=== PATIENT | male | born 1940 | race Caucasian/White ===

== ENCOUNTER 2019-01-27 07:48 | Inpatient (IN) | payer OTHER ==
[2019-01-27] MEDS ORDERED: ONDANSETRON 4 MG/2 ML VIAL ONE (08:29)
[2019-01-27] MEDS ORDERED: NA CHLORIDE 0.9% 1,000 ML ONE (08:29)
[2019-01-27 08:35] LABS: Absolute Lymphocytes (CBC) 1.4 K/uL (0.7-4.9); Basophils % 0.4 % (0-1.3); Eosinophils % 0.1 % (0-4.4); Hematocrit 38.6 % (39.6-49.0); MPV 9.7 fL (7.6-11.3); Monocytes % 12.2 % (3.3-12.3); RBC Red Blood Cell Count 4.01 M/uL (4.33-5.43)
[2019-01-27 08:49] LABS: Albumin 3.1 g/dL (3.4-5.0); Bilirubin Direct 0.2 mg/dL (0-0.2); Bilirubin Total 0.5 mg/dL (0.2-1.0); Potassium 3.8 mmol/L (3.5-5.1); Protein, Total 8.2 g/dL (6.4-8.2)
[2019-01-27 10:51] LABS: Urine Blood 2+ (NEG); Urine Glucose NEGATIVE (NEG); Urine Protein 3+ (NEG)
--- NOTE | 2019-01-27 11:28 | RAD REPORT ---
EXAM DESCRIPTION: CT - Thorax Wo Con CLINICAL HISTORY: Chest pain abnormal pulmonary xray COMPARISON: Chest Single View dated 01/27/2019 FINDINGS: Linear subsegmental atelectasis is present in the right lung base with elevation of the ri ght hemidiaphragm noted. The lungs are mildly emphysematous. Poorly defined opacity is present in the posterior right upper lobe along the periphery of lung suspicious for developing pneumonia/ infiltra te. No pleural thickening or pleural effusion. No pneumothorax. No axillary, mediastinal or hilar adenopathy. No concerning bony finding. Pneumobilia. All CT scans are performed using dose optimization technique as appropriate and may include automated exposure control or mA/KV adjustment according to patient size. IMPRESSION: Developing infiltrate is seen in the posterior right upper lobe along the periphery of t he lung.This likely represents developing pneumonia or related to aspiration. Subsegmental atelectasis in the right lung base with elevated right hemidiaphragm.
--- NOTE | 2019-01-27 11:31 | RAD REPORT ---
EXAM DESCRIPTION: RAD - Chest Single View - 01/27/2019 10:20 am CLINICAL HISTORY: MALAISE Chest pain. COMPARISON: No comparisons FINDINGS: Portable technique limits examination quality. Mild elevation in the right hemidiaphragm is seen without clear etiology. Small vague opacity is pres ent in the right upper lobe of the lung peripherally. The heart is normal in size. No displaced fract ures.
--- NOTE | 2019-01-27 11:51 | ER ---
Nurse's Notes [facility] Name: Uday Rice Age: 78 yrs Sex: Male : 1940 Arrival Date: 01/27/2019 Time: 07:51 Bed 7 Private MD: out of town, doctor Diagnosis: Pneumonia due to other specified bacteria;Chronic kidney disease (CKD) Presentation: 01/27 07:55 Presenting complaint: states: pt has had general weakness and fatigue that started sg last night, reports having the urge to vomit but nothing comes up. denies vision changes, no facial droop, or changes in speech at this time. Transition of care: patient was not received from another setting of care. Onset of symptoms was January 27, 2019. Risk Assessment: Do you want to hurt yourself or someone else? Patient reports no desire to harm self or others. Initial Sepsis Screen: Does the patient meet any 2 criteria? No. Patient's initial sepsis screen is negative. Does the patient have a suspected source of infection? No. Patient's initial sepsis screen is negative. Care prior to arrival: None. 07:55 Method Of Arrival: Wheelchair sg 07:55 Acuity: AMY 3 sg 08:00 Presenting complaint: Patient states: Karyna been throwing up the last two days and havent sg been able to take my normal medications due to vomiting, reports having been able to tolerate popsicles and water at home. Denies pain, reports soreness from vomiting in the abd, no urinary symptoms reported, denies cough/chest congestion. Historical: - Allergies: 08:09 No Known Allergies; sg - Home Meds: 08:09 allopurinol 300 mg Oral tab 1 tab once daily [Active]; atorvastatin 40 mg oral tab 1 sg tab once daily [Active]; citalopram 20 mg tab 1 tab once daily [Active]; clonidine HCl 0.1 mg Oral tab 1 tab 2 times per day for Hypertension [Active]; folic acid 1 mg Oral tab 1 tab once daily [Active]; furosemide 20 mg Oral tab 1 tab once daily [Active]; glimepiride 4 mg Oral tab 1 tab twice daily [Active]; Lantus 100 unit/mL subcutaneous soln 10 unit daily [Active]; levothyroxine 100 mcg tab 1 tab once daily [Active]; metoprolol tartrate 25 mg Oral tab 1 tab 2 times per day [Active]; nifedipine 30 mg Oral TbER 1 tab once daily [Active]; phenytoin 100 mg Tab oral chew 3 times per day [Active]; pioglitazone 45 mg oral tab 1 tab once daily [Active]; trazodone 50 mg Oral tab 1 tab nightly [Active]; Sodium Bicarbonate 10 gr Oral twice a day [Active]; zolpidem 5 mg Oral tab 1 tab once daily [Active]; aspirin 81 mg Oral chew 1 tab once daily [Active]; Vitamin D3 5,000 unit oral tab daily [Active]; B12 5,000-100 mcg sublingual lozg daily [Active]; - PMHx: 08:09 Diabetes - NIDDM; Hypertension; Hypothyroidism; Renal Disease; sg - PSHx: 08:09 Right Carotid; sg - Immunization history:: Adult Immunizations up to date. - Social history:: Smoking status: Patient/guardian denies using tobacco. - Ebola Screening: : Patient negative for fever greater than or equal to 101.5 degrees Fahrenheit, and additional compatible Ebola Virus Disease symptoms Patient denies exposure to infectious person Patient denies travel to an Ebola-affected area in the 21 days before illness onset No symptoms or risks identified at this time. Screenin:15 Abuse screen: Denies threats or abuse. Denies injuries from another. Nutritional sg screening: No deficits noted. Tuberculosis screening: No symptoms or risk factors identified. Never had TB. VAN Screening: Arm Drift: Patient shows no arm weakness. Patient is VAN negative. Fall Risk None identified. Assessment: 08:18 General: Appears in no apparent distress. uncomfortable, ill, well groomed, well sg developed, well nourished, Behavior is calm, cooperative, appropriate for age, quiet. Pain: Denies pain. Neuro: Level of Consciousness is awake, alert, obeys commands, Oriented to person, place, time, situation, [employer] are equal bilaterally Moves all extremities. Full function Gait is steady, Speech is normal, Facial symmetry appears normal. Cardiovascular: Heart tones S1 S2 present Capillary refill is brisk in bilateral fingers Patient's skin is warm and dry. Chest pain is denied. Respiratory: Airway is patent Respiratory effort is even, unlabored, Respiratory pattern is regular, symmetrical. GI: Abdomen is flat, non-distended. : No signs and/or symptoms were reported regarding the genitourinary system. EENT: Nares are clear bilaterally Throat is clear. Derm: Skin is intact, is thin, Skin is moist, Skin is pale, Skin temperature is warm. Musculoskeletal: No signs and/or symptoms reported regarding the musculoskeletal system. 08:50 Reassessment: pt reports taking his blood pressure medication just now, reports the sg nausea was better. Chari HERNANDEZ notified. 10:00 Reassessment: RECD REPORT FROM BRIANNA PUCKETT. 78YO WM P/W SUBJECTIVE DEHYDRATION AND HTN. PT bp HYPERTENSIVE ON MONITOR. RECENTLY TOOK HOME MEDS, ANTI-HYPERTENSIVES ON HOLD. RESULTS PENDING FOR DISPO. 11:16 Reassessment: PT RETURNED FROM CT. bp 12:17 Reassessment: PT SEEN BY ADMIT MD. ADMIT IN PROCESS. bp 14:00 Reassessment: ADMIT REQUEST SUBMITTED, BED ASSIGNMENT PENDING. bp Vital Signs: 08:11 BP 210 / 105; Pulse 93; Resp 19; Temp 97.6; Pulse Ox 95% on R/A; Weight 104.33 kg (R); sg Pain 0/10; 08:43 BP 197 / 90; Pulse 90; Resp 18; Temp 97.6; Pulse Ox 98% on R/A; Pain 0/10; iw 09:54 BP 191 / 121; Pulse 88; Resp 18; Pulse Ox 90% ; bp 10:15 BP 151 / 82; Pulse 78; Resp 18; Pulse Ox 94% on R/A; ph 10:30 BP 163 / 80; Pulse 71; Resp 19; Pulse Ox 93% ; bp 11:16 BP 157 / 78; Pulse 70; Resp 20; Pulse Ox 93% ; bp 12:00 BP 134 / 65; Pulse 72; Resp 20; Pulse Ox 99% on 2 lpm NC; bp 13:00 BP 177 / 128; Pulse 74; Resp 21; Pulse Ox 97% ; bp 14:00 BP 159 / 67; Pulse 85; Resp 23; Pulse Ox 97% ; bp ED Course: 07:51 Patient arrived in ED. dl4 07:52 out of town, doctor is Private Physician. dl4 07:54 Darío Amado PA is PHCP. jr8 07:54 Austen Miller MD is Attending Physician. jr8 07:55 Harley Rivera, RN is Primary Nurse. sg 07:55 Arm band placed on. sg 07:58 Triage completed. sg 08:18 Initial lab(s) drawn, by me, sent to lab. Inserted saline lock: 22 gauge in right kj1 antecubital area, using aseptic technique. 08:21 Patient has correct armband on for positive identification. Placed in gown. Bed in low sg position. Call light in reach. Side rails up X2. traffic monitor specialist on. Pulse ox on. NIBP on. Warm blanket given. Pillow given. Verbal reassurance given. Head of bed elevated. 09:45 EKG done, by ED staff, reviewed by Darío HERNANDEZ. kj1 10:19 XRAY Chest (1 view) In Process Unspecified. EDMS 11:01 CT completed. Patient tolerated procedure well. Patient moved back from CT. mw3 11:03 CT Chest Wo Con In Process Unspecified. EDMS 11:42 Corey Williamson DO is Hospitalizing Provider. jr8 14:18 Armin Nelson MD is Hospitalizing Provider. jr8 14:34 Primary Nurse role handed off by Harley Rivera, ITALO bp 14:34 Rui Montano, ITALO is Primary Nurse. bp 15:46 No provider procedures requiring assistance completed. Patient admitted, IV remains in bp place. Administered Medications: 08:19 Drug: NS 0.9% 1000 ml Route: IV; Rate: 1000 ml; Site: right antecubital; ph 10:10 Follow up: Response: No adverse reaction; IV Status: Completed infusion; IV Intake: ph 1000ml 08:19 Drug: Zofran 4 mg Route: IVP; Site: right antecubital; ph 10:13 Follow up: Response: No adverse reaction; Nausea is decreased ph 11:45 Drug: LevaQUIN 500 mg Volume: 100 ml; Route: IVPB; Infused Over: 60 mins; Site: right bp antecubital; 14:55 Follow up: IV Status: Completed infusion; IV Intake: 100ml bp 12:20 Not Given (Hemodynamic Parameters): Labetalol 10 mg IVP once bp Intake: 10:10 IV: 1000ml; Total: 1000ml. ph 14:55 IV: 100ml; Total: 1100ml. bp Outcome: 11:50 Decision to Hospitalize by Provider. jr8 15:46 Admitted to Med/surg accompanied by tech, family with patient, via wheelchair, room bp 220, with chart, Report called to HOPE PUCKETT 15:47 Condition: stable bp 15:47 Instructed on the need for admit. 16:07 Patient left the ED. bp Signatures: Dispatcher [employer] EDHarley Duckworth, RN RN sg Rupinder Holguin RN RN iw Darío Amado PA PA jr8 Savi Johnson RN RN ph Peltier, Brian, RN RN Sarah Madison mw3 Hoang Reyes dl4 Baylee Slaughter kj1
--- NOTE | 2019-01-27 11:52 | EDPHYS ---
Physician Documentation [facility] Name: Uday Rice Age: 78 yrs Sex: Male : 1940 Arrival Date: 01/27/2019 Time: 07:51 Bed 7 Private MD: out of town, doctor ED Physician Austen Miller HPI: 01/27 08:53 This 78 yrs old Male presents to ER via Wheelchair with complaints of jr8 Dehydration. 08:53 The patient presents to the emergency department with nausea, vomiting. Onset: The jr8 symptoms/episode began/occurred acutely, 3 day(s) ago. Possible causes: unknown. The symptoms are aggravated by food , The symptoms are alleviated by nothing. Associated signs and symptoms: The patient has no apparent associated signs or symptoms. Severity of symptoms: At their worst the symptoms were moderate in the emergency department the symptoms have improved mildly. The patient has not experienced similar symptoms in the past. The patient has not recently seen a physician. Historical: - Allergies: 08:09 No Known Allergies; sg - Home Meds: 08:09 allopurinol 300 mg Oral tab 1 tab once daily [Active]; atorvastatin 40 mg oral tab 1 sg tab once daily [Active]; citalopram 20 mg tab 1 tab once daily [Active]; clonidine HCl 0.1 mg Oral tab 1 tab 2 times per day for Hypertension [Active]; folic acid 1 mg Oral tab 1 tab once daily [Active]; furosemide 20 mg Oral tab 1 tab once daily [Active]; glimepiride 4 mg Oral tab 1 tab twice daily [Active]; Lantus 100 unit/mL subcutaneous soln 10 unit daily [Active]; levothyroxine 100 mcg tab 1 tab once daily [Active]; metoprolol tartrate 25 mg Oral tab 1 tab 2 times per day [Active]; nifedipine 30 mg Oral TbER 1 tab once daily [Active]; phenytoin 100 mg Tab oral chew 3 times per day [Active]; pioglitazone 45 mg oral tab 1 tab once daily [Active]; trazodone 50 mg Oral tab 1 tab nightly [Active]; Sodium Bicarbonate 10 gr Oral twice a day [Active]; zolpidem 5 mg Oral tab 1 tab once daily [Active]; aspirin 81 mg Oral chew 1 tab once daily [Active]; Vitamin D3 5,000 unit oral tab daily [Active]; B12 5,000-100 mcg sublingual lozg daily [Active]; - PMHx: 08:09 Diabetes - NIDDM; Hypertension; Hypothyroidism; Renal Disease; sg - PSHx: 08:09 Right Carotid; sg - Immunization history:: Adult Immunizations up to date. - Social history:: Smoking status: Patient/guardian denies using tobacco. - Ebola Screening: : Patient negative for fever greater than or equal to 101.5 degrees Fahrenheit, and additional compatible Ebola Virus Disease symptoms Patient denies exposure to infectious person Patient denies travel to an Ebola-affected area in the 21 days before illness onset No symptoms or risks identified at this time. ROS: 08:53 Eyes: Negative for injury, pain, redness, and discharge, ENT: Negative for injury, jr8 pain, and discharge, Neck: Negative for injury, pain, and swelling, Cardiovascular: Negative for chest pain, palpitations, and edema, Respiratory: Negative for shortness of breath, cough, wheezing, and pleuritic chest pain, Back: Negative for injury and pain, MS/Extremity: Negative for injury and deformity, Skin: Negative for injury, rash, and discoloration, Neuro: Negative for headache, weakness, numbness, tingling, and seizure. 08:53 Abdomen/GI: Positive for nausea and vomiting, Negative for abdominal pain, diarrhea, constipation, abdominal cramps, abdominal distension, anorexia, dysphagia, hematemesis, black/tarry stool, rectal pain, rectal bleeding, bowel incontinence, flatulence. Exam: 08:53 Eyes: Pupils equal round and reactive to light, extra-ocular motions intact. Lids and jr8 lashes normal. Conjunctiva and sclera are non-icteric and not injected. Cornea within normal limits. Periorbital areas with no swelling, redness, or edema. ENT: Nares patent. No nasal discharge, no septal abnormalities noted. Tympanic membranes are normal and external auditory canals are clear. Oropharynx with no redness, swelling, or masses, exudates, or evidence of obstruction, uvula midline. Mucous membranes moist. Neck: Trachea midline, no thyromegaly or masses palpated, and no cervical lymphadenopathy. Supple, full range of motion without nuchal rigidity, or vertebral point tenderness. No Meningismus. Cardiovascular: Regular rate and rhythm with a normal S1 and S2. No gallops, murmurs, or rubs. Normal PMI, no JVD. No pulse deficits. Respiratory: Lungs have equal breath sounds bilaterally, clear to auscultation and percussion. No rales, rhonchi or wheezes noted. No increased work of breathing, no retractions or nasal flaring. Abdomen/GI: Soft, non-tender, with normal bowel sounds. No distension or tympany. No guarding or rebound. No evidence of tenderness throughout. Back: No spinal tenderness. No costovertebral tenderness. Full range of motion. Skin: Warm, dry with normal turgor. Normal color with no rashes, no lesions, and no evidence of cellulitis. MS/ Extremity: Pulses equal, no cyanosis. Neurovascular intact. Full, normal range of motion. Neuro: Awake and alert, GCS 15, oriented to person, place, time, and situation. Cranial nerves II-XII grossly intact. Motor strength 5/5 in all extremities. Sensory grossly intact. Cerebellar exam normal. Normal gait. Vital Signs: 08:11 BP 210 / 105; Pulse 93; Resp 19; Temp 97.6; Pulse Ox 95% on R/A; Weight 104.33 kg (R); sg Pain 0/10; 08:43 BP 197 / 90; Pulse 90; Resp 18; Temp 97.6; Pulse Ox 98% on R/A; Pain 0/10; iw 09:54 BP 191 / 121; Pulse 88; Resp 18; Pulse Ox 90% ; bp 10:15 BP 151 / 82; Pulse 78; Resp 18; Pulse Ox 94% on R/A; ph 10:30 BP 163 / 80; Pulse 71; Resp 19; Pulse Ox 93% ; bp 11:16 BP 157 / 78; Pulse 70; Resp 20; Pulse Ox 93% ; bp 12:00 BP 134 / 65; Pulse 72; Resp 20; Pulse Ox 99% on 2 lpm NC; bp 13:00 BP 177 / 128; Pulse 74; Resp 21; Pulse Ox 97% ; bp 14:00 BP 159 / 67; Pulse 85; Resp 23; Pulse Ox 97% ; bp MDM: 08:10 Patient medically screened. 8 09:17 Data reviewed: vital signs, nurses notes, lab test result(s), and as a result, I will jr8 discharge patient. Data interpreted: Pulse oximetry: on room air is 94 %. Interpretation: borderline. Counseling: I had a detailed discussion with the patient and/or guardian regarding: the historical points, exam findings, and any diagnostic results supporting the discharge/admit diagnosis, lab results, radiology results. Response to treatment: the patient's symptoms have markedly improved after treatment, patient is well hydrated. 11:39 ED course: Patients oxygen saturation continues to drop while awake and while sleeping. [facility] Highest that we have been able to see off oxygen is 93-94%. Asked patient if he had been having any shortness of breath, cough, or chest tightness. Stated that he has felt more short of breath over the last day or two. Abnormal X-ray finding noted so CT was completed showing pneumonia. This could be the cause of the vomiting as well. Will admit for IV antibiotics and monitoring for next day or two . 01/27 08:10 Order name: Basic Metabolic Panel [facility] 01/27 08:10 Order name: CBC with Diff; Complete Time: 08:52 [facility] 01/27 08:10 Order name: Creatinine for Radiology; Complete Time: 08:52 [facility] 01/27 08:10 Order name: Hepatic Function [facility] 01/27 08:10 Order name: Lipase [facility] 01/27 10:25 Order name: Urine Dipstick--Ancillary (enter results); Complete Time: 11:07 ms 01/27 10:09 Order name: XRAY Chest (1 view); Complete Time: 11:37 ph 01/27 10:28 Order name: CT Chest Wo Con; Complete Time: 11:32 [facility] 01/27 12:19 Order name: Lactate EDNY 01/27 13:17 Order name: Blood Culture Adult (2) [facility] 01/27 08:10 Order name: IV Saline Lock; Complete Time: 08:12 [facility] 01/27 08:10 Order name: Labs collected and sent; Complete Time: 08:12 [facility] 01/27 09:26 Order name: EKG; Complete Time: 09:27 ph 01/27 12:53 Order name: Diet Ada 1800 Chris; Complete Time: 12:56 ph Administered Medications: 08:19 Drug: NS 0.9% 1000 ml Route: IV; Rate: 1000 ml; Site: right antecubital; ph 10:10 Follow up: Response: No adverse reaction; IV Status: Completed infusion; IV Intake: ph 1000ml 08:19 Drug: Zofran 4 mg Route: IVP; Site: right antecubital; ph 10:13 Follow up: Response: No adverse reaction; Nausea is decreased ph 11:45 Drug: LevaQUIN 500 mg Volume: 100 ml; Route: IVPB; Infused Over: 60 mins; Site: right bp antecubital; 14:55 Follow up: IV Status: Completed infusion; IV Intake: 100ml bp 12:20 Not Given (Hemodynamic Parameters): Labetalol 10 mg IVP once bp Disposition: 01/28 12:49 Co-signature as Attending Physician, Austen Miller MD. Disposition: 01/27/19 11:50 Hospitalization ordered by Armin Nelson for Inpatient Admission. Preliminary diagnosis are Pneumonia due to other specified bacteria, Chronic kidney disease (CKD). - Bed requested for Telemetry/MedSurg (Inpatient). - Status is Inpatient Admission. bp - Condition is Stable. - Problem is new. - Symptoms have improved. UTI on Admission? No Signatures: Dispatcher [employer] EDNY Harley Rivera RN RN sg Solis, Maria ms Darío Amado PA PA jr8 Savi Johnson RN RN ph Starr, Gregory, MD MD Rui Montano RN RN bp Corrections: (The following items were deleted from the chart) 01/27 11:42 09:17 Data interpreted: Pulse oximetry: on room air is 98 %. Interpretation: normal. [id number] 11:42 09:17 Counseling: I had a detailed discussion with the patient and/or guardian jr8 regarding: the historical points, exam findings, and any diagnostic results supporting the discharge/admit diagnosis, lab results, the need for outpatient follow up, a family practitioner, to return to the emergency department if symptoms worsen or persist or if there are any questions or concerns that arise at home, jr8 11:42 09:17 Special discussion: Based on the patient's Hx, exam, and Dx evaluation, there is jr8 no indication for emergent surgery or inpatient Tx. It is understood by the patient/guardian that if the Sx's persist or worsen they need to return immediately for re-evaluation. jr8 14:52 11:50 Hospitalization Ordered by Corey Williamson DO for Inpatient Admission. Preliminary ms diagnosis is Pneumonia due to other specified bacteria; Chronic kidney disease (CKD). Bed requested for Telemetry/MedSurg (Inpatient). Status is Inpatient Admission. Condition is Stable. Problem is new. Symptoms have improved. UTI on Admission? No. jr8 16:07 14:52 01/27/2019 11:50 Hospitalization Ordered by Armin Nelson MD for Inpatient bp Admission. Preliminary diagnosis is Pneumonia due to other specified bacteria; Chronic kidney disease (CKD). Bed requested for Telemetry/MedSurg (Inpatient). Status is Inpatient Admission. Condition is Stable. Problem is new. Symptoms have improved. UTI on Admission? No. ms
[2019-01-27] MEDS ORDERED: Levofloxacin500mg IV 500 MG/100 ML BAG IV ONE (12:16)
--- NOTE | 2019-01-27 14:35 | HP ---
Date of Admission: 01/27/2019 Code Status: DNR. Chief Complaint: Shortness of breath, nausea, vomiting. History Of Present Illness: The patient is a 78-year-old male with past medical history of hypertens ion, hyperlipidemia, chronic kidney disease, diabetes, who was in his usual state of health until Tue, when the patient started having sudden onset of shortness of breath, cough, scant sputum prod uction. The patient does report some ill contacts, fevers as high as 101.7 and chills. The patient has decreased p.o. intake, nausea and vomiting. The patient denies any choking episodes or difficult y swallowing his food. The patient therefore came into the ER for further evaluation. His symptoms are constant, moderate, progressively worsening. In the ER, his workup revealed a white blood cell c ount of 12.6 with left shift, did not appear to be septic. The patient's imaging studies revealed a right upper lobe pneumonia. Therefore, he was referred to the hospital for further evaluation and tr eatment. Past Medical History: Diabetes mellitus type 2, insulin requiring; hypertension, hyperlipidemia, gou t, chronic kidney disease, carotid artery disease, status post right carotid endarterectomy, hypothyr oidism. Allergies: NO KNOWN DRUG ALLERGIES. Medications: List reviewed. Social History: The patient denies any tobacco use, alcohol use, or illicit drug use. The patient i s , is independent in his activities of daily living. Does not use any assistive ambulatory d evices. Family History: Mother had diabetes. Review of Systems: Ten-point system reviewed, negative except as per HPI. Physical Examination: Vital Signs: Blood pressure 210/105, pulse 93, respirations 19, temperature 97.6, O2 95% on room air . General: Awake, alert, oriented x3. Elderly male, somewhat ill-appearing. The patient's O2 saturat ions did drop to 88%. Blood pressure now improved to 157/78. HEENT: Normocephalic, atraumatic. PERRLA. EOMI. Moist mucous membranes. Oropharynx is clear. Co njunctivae anicteric. Neck: Supple. No JVD. Trachea midline. CV: S1, S2. Regular rate and rhythm. Peripheral pulses present. Respiratory: Diminished breath sounds on the right. No wheezing or stridor. No use of accessory mu scles. Gastrointestinal: Abdomen is soft, nontender, nondistended. Positive bowel sounds. No guarding or rigidity. Extremities: No clubbing, cyanosis, or edema. No calf tenderness. Neuro: Cranial nerves 2-12 intact grossly. No focal neurological deficit. Speech is normal. Stren gth is symmetric in bilateral upper and lower extremities. Skin: No rashes. Normal skin turgor. Psych: Mood is okay. Affect is full. Insight and judgment are good. Laboratory Data: Sodium 141, potassium 3.8, chloride 106, CO2 23, BUN 43, creatinine 3.36, glucose 1 45, calcium 9, albumin 3.1. WBC 12.6, H and H of 13 and 38.6, platelets 196, neutrophils 76%. UA ne gative nitrite, negative leukocyte esterase. Imaging Studies: CT scan of the chest personally reviewed shows developing infiltrate in the posteri or right upper lobe along the periphery of the lung, likely represents developing pneumonia or relate d to aspiration. Subsegmental atelectasis in the right lung base with elevated right hemidiaphragm. Chest x-ray, personally reviewed, also shows mild elevation of the right hemidiaphragm. Vague opaci ty present in the right upper lobe of the lung peripherally. Assessment: A 78-year-old male with: 1.Right upper lobe pneumonia, possible aspiration type of pneumonia. We will start on IV antibiotic s. We will have Speech Therapy evaluate the patient. He denies any choking episodes. Does report s ome gastric reflux. We will obtain blood cultures and sputum culture. 2.Elevated right hemidiaphragm, likely due to pneumonia. No abdominal pain or distention noted. No free air seen on imaging study. 3.Uncontrolled blood pressure. The patient has essential hypertension. We will resume home medicat ions. 4.Gout, on allopurinol. 5.Mixed hyperlipidemia. Continue statin. 6.Chronic kidney disease, stage 4, appears to be around baseline. We will consult Nephrology. 7.Diabetes mellitus type 2, insulin requiring with chronic kidney disease. We will start on sliding scale insulin and monitor blood glucose levels. 8.Coronary artery disease status post right carotid endarterectomy. 9.Deep vein thrombosis prophylaxis with Lovenox renally dosed. Plan: Admit the patient to Med-Surg, place as inpatient, length of stay greater than 2 midnights. SA/MODL Voice ID: [id number]
[2019-01-27] MEDS ORDERED: ALBUTEROL 2.5 MG/3 ML NEB SOL NEB PRN (16:13)
[2019-01-27] MEDS: NA CHLORIDE 0.9% 1,000 ML IV SCH (17:19)
[2019-01-27] MEDS: INSULIN -REGULAR HUMAN 50 UNIT/0.5 ML ML SQ SCH ×2 (17:19→20:19)
[2019-01-27] MEDS: ENOXAPARIN 30 MG/0.3 ML SQ SCH (17:19)
[2019-01-27 17:42] VITALS: BMI 25.9
[2019-01-27] MEDS: METRONIDAZOLE 500mg IVPB 500 MG/100 ML BAG IV SCH (17:55)
[2019-01-27 20:03] LABS: CKMB Creatine Kinase MB 1.9 ng/mL (0.3-3.6)
[2019-01-27] MEDS: CEFTRIAXONE/SWI 1gm 1 GM/10 ML SYR IV SCH (20:17)
[2019-01-27] MEDS ORDERED: CEFTRIAXONE 1 GM/NS 50 ML 1 GM/50 ML BAG IV SCH (21:00)
[2019-01-27] MEDS: ONDANSETRON 4 MG/2 ML VIAL IV PRN (22:45)
--- NOTE | 2019-01-27 23:45 | RAD REPORT ---
EXAM DESCRIPTION: US - Renal Ultrasound-Complete - 01/27/2019 10:36 pm CLINICAL HISTORY: Acute renal insufficiency COMPARISON: 2018 FINDINGS: The right kidney measures 10 cm with an increased echotexture. The left kidney measures 9 cm with an increased echotexture. 9 millimeter left renal cyst Hydronephrosis is not seen. Bladder is decompressed and poorly evaluated IMPRESSION: Increased renal echotexture consistent with parenchymal disease
[2019-01-28] MEDS: METRONIDAZOLE 500mg IVPB 500 MG/100 ML BAG IV SCH ×3 (00:28→16:45)
[2019-01-28] MEDS: NA CHLORIDE 0.9% 1,000 ML IV SCH ×2 (05:40→18:53)
[2019-01-28 05:54] LABS: Albumin 2.4 g/dL (3.4-5.0); Bilirubin Total 0.3 mg/dL (0.2-1.0); Protein, Total 6.4 g/dL (6.4-8.2)
[2019-01-28 06:40] LABS: Absolute Lymphocytes (CBC) 1.8 K/uL (0.7-4.9); Basophils % 0.5 % (0-1.3); Eosinophils % 0.1 % (0-4.4); Hematocrit 29.7 % (39.6-49.0); Lymphocytes % 16.6 % (15.3-44.8); MPV 9.8 fL (7.6-11.3); Monocytes % 14.5 % (3.3-12.3); RBC Red Blood Cell Count 3.05 M/uL (4.33-5.43)
[2019-01-28] MEDS: INSULIN -REGULAR HUMAN 50 UNIT/0.5 ML ML SQ SCH ×4 (07:30→20:41)
[2019-01-28] MEDS: CEFTRIAXONE/SWI 1gm 1 GM/10 ML SYR IV SCH ×2 (08:52→20:42)
[2019-01-28] MEDS ORDERED: AZITHROMYCIN IV 500 MG in NA CHLORIDE 0.9% 250 ML IVPB SCH (09:00)
--- NOTE | 2019-01-28 10:38 | EKG ---
Test Date: 2019-01-27 Test Time: 09:35:20 Foreign Law Consultant: DIAZ MEASUREMENT RESULTS: Intervals: Rate: 96 OR: 186 QRSD: 138 QT: 420 QTc: 530 Isle: P: 67 OR: 186 QRS: -39 T: 116 INTERPRETIVE STATEMENTS: Normal sinus rhythm Left axis deviation Left bundle branch block Abnormal ECG No previous ECG available for comparison Electronically Signed On 01-28-19 10:37:41 CDT by Michael Mathis
[2019-01-28] MEDS: ONDANSETRON 4 MG/2 ML VIAL IV PRN (11:43)
[2019-01-28 11:49] LABS: Urine Appearance CLOUDY; Urine Bilirubin NEGATIVE (NEG); Urine Blood 2+ (NEG); Urine Color YELLOW; Urine Glucose NEGATIVE (NEG); Urine Microscopic Reflex ORDER UMIC; Urine Protein NEGATIVE (NEG); Urine Specific Gravity 1.015 (1.005-1.030); Urine Urobilinogen 0.2 mg/dL (0.2-1.0); Urine pH 5.5 (5.0-7.0)
[2019-01-28 12:07] LABS: Urine Amorphous Sediment TRACE /HPF (NONE SEEN); Urine Bacteria <20 /HPF (NONE SEEN); Urine Culture Reflex Order NOT NEEDED; Urine RBC <5 /HPF (NONE SEEN)
[2019-01-28] MEDS: SODIUM BICARB 325 MG TAB PO SCH ×2 (12:25→20:39)
[2019-01-28] MEDS: TRAZODONE 50 MG TABLET PO SCH ×2 (12:26→20:40)
[2019-01-28] MEDS: ATORVASTATIN 40 MG TAB PO SCH (12:27)
[2019-01-28 12:28] LABS: Urine Protein/Creatinine Ratio 3.79 ratio (<0.15)
[2019-01-28] MEDS: ALLOPURINOL 100 MG TAB PO SCH (12:28)
[2019-01-28] MEDS: ASPIRIN 81 MG CHEWABLE TABLET PO SCH (12:28)
[2019-01-28] MEDS: FOLIC ACID 1 MG TABLET PO SCH (12:28)
--- NOTE | 2019-01-28 15:45 | PN ---
Date of Progress Note: 01/28/2019 Subjective: The patient seen and examined. Chart reviewed and case discussed with RN. The patient is still having some cough with congestion requiring supplemental oxygen. Blood pressure has been on the high side. Home medications not reconciled. Otherwise doing okay. Medications: List reviewed. Physical Examination: Vital Signs: Temperature 97.8, heart rate 67, blood pressure 195/90, respirations 18, O2 91% on 3 L via nasal cannula, drops down to 85% on room air. General: Awake, alert, oriented x3, elderly male, ill appearing. CV: S1, S2. Peripheral pulses present. Regular rate and rhythm. Respiratory: Diminished breath sounds on the right. No wheezing or stridor. Gastrointestinal: Abdomen is soft, nontender, nondistended. Positive bowel sounds. Extremities: No clubbing, cyanosis, or edema. Neurologic: Nonfocal. Laboratory Data: Sodium 143, potassium 4, chloride 110, CO2 22, BUN 48, creatinine 3.71, glucose 89, calcium 8.1, AST 59, ALT 43, albumin 2.4. WBC 10.8, H and H 9.8 and 29.7. Platelets 158. Blood cu ltures and sputum cultures are pending. Assessment And Plan: A 78-year-old male with: 1.Right lower lobe pneumonia. We will continue with IV antibiotics. Discontinue Azithromycin, like ly aspiration type pneumonia. Follow up on cultures. 2.Elevated right hemidiaphragm, likely due to pneumonia. Spoke with surgeon on-call. Does not dolores mmend any intervention at this time. 3.Essential hypertension. Blood pressure is not well controlled. We will resume home medications. 4.Gout. Continue allopurinol. 5.Mixed hyperlipidemia. Continue statin. 6.Chronic kidney disease stage 4. Creatinine is around baseline. Nephrology on board. We will con tinue to monitor. 7.Diabetes mellitus type 2, insulin requiring with chronic kidney disease. Continue sliding scale i nsulin. Resume home insulin dose, monitor blood glucose levels. 8.Carotid artery disease, status post carotid endarterectomy, stable. 9.Deep venous thrombosis prophylaxis with Lovenox renally dosed. Plan: Adjust IV antibiotics likely discontinue in the next 24-48 hours depending on clinical respons e. The patient is still becoming hypoxic on room air. Consider pulmonology consultation if conditio n is worsening. Repeat chest x-ray in a.m. /OLIVER Voice ID: [id number] Report ID: [id number]
[2019-01-28] MEDS: ENOXAPARIN 30 MG/0.3 ML SQ SCH (16:45)
[2019-01-28] MEDS: GLIMEPIRIDE 2 MG TABLET PO SCH (16:45)
--- NOTE | 2019-01-28 18:06 | CON ---
Date of Consultation: 01/28/2019 Reason For Consultation: Elevated BUN and creatinine, fluid management, acidosis. History Of Present Illness: This is a 78-year-old gentleman with significant past medical history of hypertension, diabetes for the last 20 years, complicated with nephropathy, hyperlipidemia, rheumato id arthritis, used to be on methotrexate, chronic kidney disease stage 4, baseline GFR between 15-20. According to him follow up with new vehicle sales consultant . The patient came to the hospital because feeling weak, shortness of breath and cough, found to have fever and pneumonia with difficulty swallo wing. Primary lab showed elevation in BUN and creatinine and leukocytosis. For that reason, we have been consulted. As I mention as by the patient, patient baseline GFR around 20. Patient denied meera ing any nonsteroidal. No IV contrast. No recent change in his medication. Past Medical History: Include; 1.Diabetes complicated with neuropathy and nephropathy. 2.Hypertension. 3.Hyperlipidemia. 4.Gout. 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 Social History: Denies smoking. Denied alcohol. Denied drug abuse. Lives with family. Family History: Positive for diabetes. Review of Systems: Head and Neck: No red eye. No ear pain. GI: No nausea. No vomiting. no polyuria. No dysuria. No hematuria. Pipe Covering Molder: Not applicable. Respiratory: Has cough. Cardiovascular: Has no leg swelling. Endocrine: No polydipsia. Skin: No rash. Neuro: Has no neuropathy. Musculoskeletal: Has fatigue. Medications: Home medications include insulin, levothyroxine, folic acid, clonidine, cholecalciferol , Ambien, sodium bicarb b.i.d., Actos, Dilantin, nifedipine 30, glimepiride, metoprolol, Lasix 20, at orvastatin, and allopurinol. Current medication in the hospital includes allopurinol 100, ceftriaxone, Lovenox, folic acid, glimep iride, insulin, levothyroxine, metoprolol, metronidazole, nifedipine, Dilantin, Actos, sodium bicarb 1 tablet b.i.d. 650, Ambien. Physical Examination: Vital Signs: When I saw the patient, the patient lying in bed, comfortable, not on any distress. Bl ood pressure 184/86, pulse of 73. Chest: Clear to auscultation. Heart: S1, S2. Regular. Abdomen: Soft, nontender. Extremity: No edema. Neuro: Alert, oriented x3. No focal. Laboratory Data: WBC 10.8, H and H 9.8/29.7, platelet 158. Sodium 143, potassium 4, bicarb 22, BUN 48, creatinine 3.7, GFR of 16, glucose 89, calcium 8.1. PTH still pending. Assessment And Plan: 1.Chronic kidney disease with mild acute kidney injury secondary to prerenal, secondary to poor inta ke. I am going to go ahead and discontinue Lasix. Continue IV hydration. 2.Acidosis secondary to renal failure. Continue sodium bicarb. 3.Hypertension, uncontrolled. I going to go ahead and increase nifedipine to 60 mg and we will foll ow up the response for the patient. 4.Vitamin D deficiency. Continue supplement. 5.Gout. Continue allopurinol dose appropriate. 6.Colitis. Continue current antibiotic. ELEANOR Voice ID: [id number] Report ID: [id number]
[2019-01-28] MEDS: PHENYTOIN ER 100 MG CAP PO SCH (20:39)
[2019-01-28] MEDS: CITALOPRAM 10 MG TABLET PO SCH (20:39)
[2019-01-28] MEDS: cloNIDine HCl 0.1 MG TAB PO SCH (20:40)
[2019-01-28] MEDS: METOPROLOL XL 50 MG TAB PO SCH (20:42)
[2019-01-28] MEDS ORDERED: METOPROLOL XL 25 MG TAB PO SCH (21:00)
[2019-01-28] MEDS ORDERED: HOME MED 1 EA UNK (Glimepiride [Glimepiride] 4 MG) PO SCH (21:00)
[2019-01-28] MEDS ORDERED: HOME MED 1 EA UNK (Citalopram Hydrobromide [Citalopram Hbr] 20 MG) PO SCH (21:00)
[2019-01-28] MEDS: ZOLPIDEM TARTRATE 5 MG TABLET PO SCH (22:32)
[2019-01-29] MEDS: METRONIDAZOLE 500mg IVPB 500 MG/100 ML BAG IV SCH ×2 (00:06→08:00)
[2019-01-29] MEDS: NA CHLORIDE 0.9% 1,000 ML IV SCH ×2 (00:07→08:13)
[2019-01-29 04:34] LABS: Albumin 2.1 g/dL (3.4-5.0); Bilirubin Total 0.2 mg/dL (0.2-1.0); Phosphorus 4.3 mg/dL (2.5-4.9); Potassium 3.7 mmol/L (3.5-5.1); Protein, Total 5.7 g/dL (6.4-8.2)
[2019-01-29] MEDS: LEVOTHYROXINE SOD 0.1 MG TAB PO SCH (06:10)
[2019-01-29] MEDS: INSULIN -REGULAR HUMAN 50 UNIT/0.5 ML ML SQ SCH ×4 (07:30→20:26)
[2019-01-29] MEDS: GLIMEPIRIDE 2 MG TABLET PO SCH ×2 (08:08→16:20)
[2019-01-29] MEDS: TRAZODONE 50 MG TABLET PO SCH ×2 (08:08→20:25)
[2019-01-29] MEDS: SODIUM BICARB 325 MG TAB PO SCH ×2 (08:08→20:25)
[2019-01-29] MEDS: METOPROLOL XL 50 MG TAB PO SCH ×2 (08:08→20:24)
[2019-01-29] MEDS: cloNIDine HCl 0.1 MG TAB PO SCH ×2 (08:09→20:24)
[2019-01-29] MEDS: PIOGLITAZONE 15 MG TAB PO SCH (08:09)
[2019-01-29] MEDS: NIFEDIPINE XL 60 MG TABLET PO SCH (08:09)
[2019-01-29] MEDS: FOLIC ACID 1 MG TABLET PO SCH (08:09)
[2019-01-29] MEDS: ATORVASTATIN 40 MG TAB PO SCH (08:09)
[2019-01-29] MEDS: ASPIRIN 81 MG CHEWABLE TABLET PO SCH (08:10)
[2019-01-29] MEDS: CEFTRIAXONE/SWI 1gm 1 GM/10 ML SYR IV SCH (08:10)
[2019-01-29] MEDS: ALLOPURINOL 100 MG TAB PO SCH (08:10)
[2019-01-29] MEDS: INSULIN GLARGINE 100 UNITS/ML SQ SCH (08:11)
--- NOTE | 2019-01-29 08:39 | RAD REPORT ---
EXAM DESCRIPTION: Annemarie Marshall (2 Views)01/29/2019 6:07 am CLINICAL HISTORY: Cough COMPARISON: January 27 FINDINGS: Mild worsening in the right upper lobe infiltrate. Mild right basilar atelectasis The left lung appears clear of acute infiltrate. Heart is normal size IMPRESSION: Mild worsening in right pneumonia
[2019-01-29] MEDS ORDERED: FUROSEMIDE 20 MG TABLET PO SCH (09:00)
[2019-01-29] MEDS ORDERED: PIOGLITAZONE HCL 45 MG PO SCH (09:00)
[2019-01-29] MEDS ORDERED: NIFEDIPINE XL 30 MG TABLET PO SCH (09:00)
[2019-01-29] MEDS ORDERED: INSULIN GLARGINE HUM REC ANLOG 10 UNIT SQ SCH (09:00)
--- NOTE | 2019-01-29 12:30 | P.CNS ---
Date of Consult: 01/29/19 Chief Complaint: Abnormal chest x-ray hypoxemia History of Present Illness: Patient is 78 years of age a poor historian history obtained from his apparently he has been sick since when is day complaining of nausea fever and got dehydrated denies any pulmonary complaints no cough sputum hemoptysis chest pain he has some fever feeling better patient is never smoked history of chronic renal failure Allergies No Known Allergies Allergy (Verified 01/27/19 16:21) Home Medications: Allopurinol [Zyloprim*] 100 mg PO DAILY 01/27/19 Aspirin 81 mg PO DAILY 01/27/19 Atorvastatin Calcium [Lipitor] 40 mg PO DAILY 01/27/19 Cholecalciferol (Vitamin D3) [Vitamin D3] 5,000 unit PO DAILY 01/27/19 Citalopram Hydrobromide [Citalopram HBr] 20 mg PO BEDTIME 01/27/19 Clonidine HCl [Clonidine HCl ER] 0.1 mg PO BID 01/27/19 Cyanocobalamin (Vitamin B-12) [Vitamin B12] 1,000 mcg PO DAILY 01/27/19 Folic Acid 1 mg PO DAILY 01/27/19 Furosemide [Lasix*] 20 mg PO DAILY 01/27/19 Glimepiride 4 mg PO BID 01/27/19 Insulin Glargine,Hum.rec.anlog [Lantus Solostar] 15 units SQ DAILY 01/27/19 Levothyroxine Sodium 100 mcg PO DAILY 01/27/19 Metoprolol Succinate [Toprol Xl*] 25 mg PO BID 01/27/19 Nifedipine [Nifedipine ER] 30 mg PO DAILY 01/27/19 PHENYTOIN ER Cap [Dilantin ER Cap*] 300 mg PO BEDTIME 01/27/19 Pioglitazone HCl 45 mg PO DAILY 01/27/19 Sodium Bicarbonate 10 gr PO BID 01/27/19 Trazodone [Desyrel*] 100 mg PO BID 01/27/19 Zolpidem Tartrate [Ambien*] 5 mg PO BEDTIME 01/27/19 - Past Medical/Surgical History Diabetic: Yes -: HTN -: Diabetic -: Chronicn Kidney Issues -: Arthritis -: carotid artery surgery - Family History Father History Unknown: Yes Mother Medical History: Diabetes - Social History Alcohol use: No CD- Drugs: No Caffeine use: Yes Place of Residence: Home Review of Systems 10-point ROS is otherwise unremarkable Physical Examination Temp Pulse Resp BP Pulse Ox 97.8 F 62 18 143/66 H 93 01/29/19 12:00 01/29/19 12:00 01/29/19 12:00 01/29/19 12:00 01/29/19 12:00 General: Alert, In no apparent distress, Oriented x3 Neck: Supple Respiratory: Clear to auscultation bilaterally Cardiovascular: No edema, Normal pulses, Regular rate/rhythm Gastrointestinal: Normal bowel sounds, Soft and benign - Problems (1) Abnormal chest x-ray Current Visit: Yes Status: Acute Plan: Patient is 78 years of age admitted with nausea possible vital gastroenteritis although he did not have any diarrhea no pulmonary complaints hypoxic patient has a chronic renal failure a right upper lobe infiltrate white count is declining apparently he has hypoxic will check room air pulse ox patient's cultures are all negative possible discharge on Zithromax or doxycycline follow up with me in 2 weeks
[2019-01-29] MEDS: ENOXAPARIN 30 MG/0.3 ML SQ SCH (16:20)
[2019-01-29] MEDS ORDERED: PIPER/TAZO/NS 3.375gm 3.375 GM/100 ML BAG IVPB SCH (17:00)
--- NOTE | 2019-01-29 19:25 | PN ---
Date of Progress Note: 01/29/2019 Subjective: The patient seen and examined, chart reviewed and case discussed with RN and Dr. Dawson dowell. The patient still very hypoxic requiring 4 L of oxygen via nasal cannula. Room air saturations w ere 88%. I spoke with the at length. The patient unable to be safely discharged until oxygenat ion has improved. Medications: List reviewed. Physical Examination: Vital Signs: Temperature 97.2, heart rate 62, blood pressure 143/66, respirations 18, O2 93% on 4 L via nasal cannula. General: Awake, alert, oriented x3. Elderly male. No acute distress. CV: S1, S2. Regular rate and rhythm. Peripheral pulses present. Respiratory: Diminished breath sounds in the right base. No wheezing or stridor. Gastrointestinal: Abdomen is soft, nontender, nondistended. Positive bowel sounds. Extremities: No clubbing, cyanosis, or edema. Neurologic: Nonfocal. Laboratory Data: Sodium 144, potassium 3.7, chloride 113 CO2 22, BUN 52, creatinine 3.86, glucose 12 8, calcium 7.9, phosphorus 4.3, AST 89, ALT 57, alkaline phosphatase 78, total protein 5.7, albumin 2 .1. Blood cultures, Gram stain showing gram-positive rods, 1 bottle out of 4, may be contaminant. C hest x-ray personally reviewed shows worsening of right pneumonia, mild right basilar atelectasis, in filtrates in the upper lobe. Assessment And Plan: A 78-year-old male with: 1.Right upper lobe pneumonia. Continue IV antibiotics. Chest x-ray shows worsening, switched over to Zosyn. Appreciate Pulmonology input, may be possible aspiration. Speech therapy evaluation pendi ng. 2.Elevated right hemidiaphragm, likely due to pneumonia versus possible hiatal hernia. 3.Essential hypertension, stable. Continue home medications. 4.Gout, on allopurinol, stable. 5.Mixed hyperlipidemia, continue statin. 6.Hypoxia likely secondary to pneumonia. We will continue to wean off O2 as tolerated. Currently 8 8% on room air. 7.Chronic kidney disease, stage IV. Creatinine around baseline. We will continue to monitor Nephro logy. Appreciate Nephrology input. 8.Diabetes mellitus type 2 insulin requiring with chronic kidney disease. Continue sliding scale in sulin continue Accu-Cheks. 9.Carotid artery disease, status post carotid endarterectomy, stable. 10.Deep venous thrombosis prophylaxis with Lovenox, renally dosed. Plan: 1.Discharge once O2 saturations are more stable. Follow up with speech therapy evaluation. 2.Blood culture show gram-positive and gram stain, 1/4 bottles likely skin contaminant. We will con tinue to monitor. No signs of sepsis. SA/MODL Voice ID: [id number] Report ID: [id number]
[2019-01-29] MEDS: ZOLPIDEM TARTRATE 5 MG TABLET PO SCH (20:25)
[2019-01-29] MEDS: PHENYTOIN ER 100 MG CAP PO SCH (20:25)
[2019-01-29] MEDS: CITALOPRAM 10 MG TABLET PO SCH (20:25)
[2019-01-30] MEDS ORDERED: PIPER/TAZO/NS 2.25gm 2.25 GM/50 ML BAG IV SCH (01:00)
--- NOTE | 2019-01-30 01:32 | PN ---
Date of Progress Note: 01/29/2019 History Of Present Illness: Chronic kidney disease, accelerated by acute kidney injury secondary to prerenal azotemia. The patient was previously taking Lasix, and upon admission, Lasix was stopped an d the patient was started on IV fluids. The patient was found to have mild metabolic acidosis secondary to chronic kidney disease. The patie nt is on sodium bicarbonate to treat metabolic acidosis. Review of Systems: The patient denies fever, chills. Physical Examination: Lungs: Few crackles at bases. Heart: S1-S2. Abdomen: Soft, benign. Extremities: No edema. Lab Work: Hemoglobin 9.8, WBC 10.8, platelet count 158,000. Sodium 144, potassium 3.7, chloride 113 , CO2 22, BUN 52, creatinine 3.86, glucose 128, calcium 7.9, phosphorus 4.3. Impression And Plan: 1.Acute on chronic kidney injury. Renal function has declined over last 48 hours. The patient has prerenal azotemia. The patient has nonoliguric urine output. Electrolytes are within normal ranges. The patient developed metabolic acidosis and is treated with sodium bicarbonate. Continue IV fluid s for hydration. 2.Hypoalbuminemia. The patient will have workup to rule out nephrotic syndrome. The patient had pr otein creatinine ratio evaluation and this showed nephrotic range proteinuria. The patient may need a kidney biopsy for nephritic syndrome. 3.Hypertension. Continue blood pressure medication. 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 Continue to monitor with renal panel and continue IV fluids for mild hydration. EB/MODL Voice ID: [id number] Report ID: [id number]
[2019-01-30] MEDS: LEVOTHYROXINE SOD 0.1 MG TAB PO SCH (04:58)
[2019-01-30 05:59] LABS: Basophils % 1.2 % (0-1.3); Eosinophils % 4.7 % (0-4.4); Hematocrit 25.7 % (39.6-49.0); Lymphocytes % 17.4 % (15.3-44.8); MPV 9.6 fL (7.6-11.3); Monocytes % 12.3 % (3.3-12.3); RBC Red Blood Cell Count 2.64 M/uL (4.33-5.43)
[2019-01-30 06:26] LABS: Albumin 2.2 g/dL (3.4-5.0); Bilirubin Total 0.1 mg/dL (0.2-1.0); Phosphorus 5.8 mg/dL (2.5-4.9); Potassium 3.9 mmol/L (3.5-5.1)
[2019-01-30] MEDS: INSULIN -REGULAR HUMAN 50 UNIT/0.5 ML ML SQ SCH ×4 (07:30→21:18)
[2019-01-30] MEDS: D5 0.45 NS 1,000 ML IV SCH ×2 (10:18→23:20)
[2019-01-30] MEDS: INSULIN GLARGINE 100 UNITS/ML SQ SCH (10:19)
[2019-01-30] MEDS: SODIUM BICARB 325 MG TAB PO SCH ×2 (10:20→21:16)
[2019-01-30] MEDS: PIOGLITAZONE 15 MG TAB PO SCH (10:20)
[2019-01-30] MEDS: DOXYCYCLINE 100 MG CAP PO SCH ×2 (10:21→21:18)
[2019-01-30] MEDS: cloNIDine HCl 0.1 MG TAB PO SCH ×2 (10:21→21:17)
[2019-01-30] MEDS: ATORVASTATIN 40 MG TAB PO SCH (10:22)
[2019-01-30] MEDS: METOPROLOL XL 50 MG TAB PO SCH ×2 (10:22→21:17)
[2019-01-30] MEDS: ALLOPURINOL 100 MG TAB PO SCH (10:23)
[2019-01-30] MEDS: ASPIRIN 81 MG CHEWABLE TABLET PO SCH (10:23)
[2019-01-30] MEDS: GLIMEPIRIDE 2 MG TABLET PO SCH ×2 (10:23→19:37)
[2019-01-30] MEDS: TRAZODONE 50 MG TABLET PO SCH ×2 (10:24→21:17)
[2019-01-30] MEDS: FOLIC ACID 1 MG TABLET PO SCH (10:25)
[2019-01-30] MEDS: NIFEDIPINE XL 60 MG TABLET PO SCH (10:25)
--- NOTE | 2019-01-30 11:42 | P.PN ---
Subjective Date of Service: 01/30/19 Chief Complaint: Abnormal chest x-ray hypoxemia Subjective: Improving (Patient is doing better slept well last night denies any baseline history of dyspnea or obstructive airways disease no pulmonary complaints) Review of Systems 10-point ROS is otherwise unremarkable General: Weakness Physical Examination - Vital Signs Temperature: 97.9 F Blood Pressure: 163/72 Pulse: 59 Respirations: 18 Pulse Ox (%): 97 - Physical Exam General: Alert, Oriented x3 Respiratory: Clear to auscultation bilaterally Cardiovascular: No edema, Normal S1 S2 Assessment & Plan - Problems (Diagnosis) (1) Abnormal chest x-ray Current Visit: Yes Status: Acute Plan: Patient has abnormal chest x-ray right upper lobe infiltrate no evidence of sepsis he is hypoxic I have ordered room-air ABGs 2D echocardiogram with a bubble study to look for shunt I suspect that he has had longstanding hypoxemia patient has an elevated right hemidiaphragm his hemoglobin is probably at his baseline on due to his chronic renal failure arterial blood gases orders room- air sat was low apart from the infiltrate in the right upper lobe. There is no obvious evidence of interstitium lung disease echocardiogram pending I given him a trial of bronchodilators for the possibility of underlying obstructive airways disease no evidence of sepsis cultures are all negative
[2019-01-30 11:45] LABS: Arterial Blood Carboxyhemoglob 1.1 % (0-1.5); Blood Gas Oxyhemoglobin 87.3 % (94-97)
--- NOTE | 2019-01-30 13:29 | ECHO ---
HEIGHT: 6 ft 2 in WEIGHT: 202 lb 0 oz DATE OF STUDY: 01/30/[address]: Rip Fields MD 2-DIMENSIONAL: YES M.MODE: YES DOPPLER: YES COLOR FLOW: YES TDS: NO PORTABLE: NO DEFINITY: NO BUBBLE STUDY: YES DIAGNOSIS: HYPOXIC CARDIAC HISTORY: CATHERIZATION: NO SURGERY: NO PROSTHETIC VALVE: NO PACEMAKER: NO MEASUREMENTS (cm) DIASTOLIC (NORMALS) SYSTOLIC (NORMALS) IVSd 1.6 (0.6-1.2) LA Diam 4.2 (1.9-4.0) LVEF 80% LVIDd 3.7 (3.5-5.7) LVIDs 2.0 (2.0-3.5) %FS 47% LVPWd 1.5 (0.6-1.2) Ao Diam 3.4 (2.0-3.7) 2 DIMENSIONAL ASSESSMENT: RIGHT ATRIUM: NORMAL LEFT ATRIUM: DILATED RIGHT VENTRICLE: NORMAL LEFT VENTRICLE: LEFT VENTRICULAR HYPERTROPHY TRICUSPID VALVE: NORMAL MITRAL VALVE: NORMAL PULMONIC VALVE: NORMAL AORTIC VALVE: NORMAL PERICARDIAL EFFUSION: NONE AORTIC ROOT: NORMAL LEFT VENTRICULAR WALL MOTION: DECREASED LEFT VENTRICULAR COMPLIANCE. DOPPLER/COLOR FLOW: NORMAL COMMENTS: LEFT ATRIAL ENLARGEMENT. LEFT VENTRICULAR HYPERTROPHY. DECREASED LEFT VENTRICULAR COMPLIANCE. NORMAL LEFT VENTRICULAR EJECTION FRACTION. NEGATIVE SALINE CONTRAST STUDY, NO ATRIAL SEPTAL DEFECT. TECHNOLOGIST: Rika RICE
[2019-01-30] MEDS: ARFORMOTEROL TARTRATE 15 MCG/2 ML VIAL.NEB NEB SCH ×2 (13:44→19:24)
[2019-01-30] MEDS: ENOXAPARIN 30 MG/0.3 ML SQ SCH (17:00)
--- NOTE | 2019-01-30 17:19 | P.PN ---
Subjective Date of Service: 01/30/19 Chief Complaint: Abnormal chest x-ray hypoxemia Subjective: Tolerating diet, Improving, Working w/ PT, Doing well Review of Systems 10-point ROS is otherwise unremarkable Physical Examination - Vital Signs Temperature: 97.7 F Blood Pressure: 163/71 Pulse: 58 Respirations: 16 Pulse Ox (%): 98 - Physical Exam General: Alert, In no apparent distress HEENT: Atraumatic, PERRLA, EOMI Neck: Supple, JVD not distended Respiratory: Normal air movement, Expiratory wheezes, Inspiratory wheezes Cardiovascular: Regular rate/rhythm, Normal S1 S2 Gastrointestinal: Normal bowel sounds, No tenderness Musculoskeletal: No tenderness Integumentary: No rashes Neurological: Normal speech, Normal tone, Normal affect Lymphatics: No axilla or inguinal lymphadenopathy - Studies Medications List Reviewed: Yes Assessment And Plan - Plan Assessment And Plan: 1. Right upper lobe pneumonia. -Currently on IV Zosyn. -pulmonology consulted. Appreciated recommendations at this time -echocardiogram to evaluate for shunt versus pulmonary hypertension -continue with IV antibiotics at this time as well -currently on nasal cannula saturating well. Will attempt to wean -speech therapy consult obtained. Negative for aspiration however recommended modified barium swallow -Will order at this time 2.Elevated right joelle-diaphragm, likely due to pneumonia versus possible hiatal hernia. 3.Essential hypertension -stable. Continue home medications. 4.Gout -on allopurinol, stable. 5.Mixed hyperlipidemia -continue statin. 6.Hypoxia likely secondary to pneumonia. -We will continue to wean off O2 as tolerated. 7.Chronic kidney disease, stage IV. -Creatinine around baseline. -We will continue to monitor Nephrology. -Appreciate Nephrology input. 8.Diabetes mellitus type 2 insulin requiring with chronic kidney disease. -Continue sliding scale insulin continue Accu-Cheks. 9.Carotid artery disease -status post carotid endarterectomy, stable. 10.Deep venous thrombosis prophylaxis with Lovenox, renally dosed. Plan: 1.Discharge once O2 saturations are more stable. Discharge Plan: Home Plan to discharge in: Greater than 2 days - Code Status/Comfort Care Code Status Assessed: Yes Critical Care: No
--- NOTE | 2019-01-30 19:21 | P.PN ---
Subjective Date of Service: 01/30/19 Chief Complaint: Abnormal chest x-ray hypoxemia Subjective: Worsening Pt with CKD and Hx of CHF, admitted for SOB and wekaness today no overnight events Cr trending up pt offered HD, but wants to wait for repeated CMp tomorrow NPO from [place] for possible dialysis cath placement tomorrow if pt agrees will send for serology w/u cont IVF Physical Examination - Vital Signs Temperature: 97.7 F Blood Pressure: 163/71 Pulse: 58 Respirations: 16 Pulse Ox (%): 98 - Physical Exam General: In no apparent distress, Oriented x3 HEENT: Atraumatic Neck: Supple, Without JVD or thyroid abnormality Respiratory: Clear to auscultation bilaterally, Normal air movement Cardiovascular: No edema, Regular rate/rhythm, Normal S1 S2, No gallops, No rubs , No murmurs Gastrointestinal: Normal bowel sounds, Soft and benign Musculoskeletal: No swelling - Studies Medications List Reviewed: Yes Assessment And Plan - Current Problems (Diagnosis) (1) GREG (acute kidney injury) Current Visit: Yes Status: Acute - Plan GREG on CKD IV Greg etiology is unclear will send for serology w/u US No hydro UPC 3.9 CKD due to DM HD tomorrow if pt agrees HTN BP elevated , will monitor for now , will not start on new meds as pt might require HD Acute anemia No overt bleeding will send for W/U consdier Abd CT withou contrast DM as per primary
[2019-01-30] MEDS: PHENYTOIN ER 100 MG CAP PO SCH (21:16)
[2019-01-30] MEDS: ZOLPIDEM TARTRATE 5 MG TABLET PO SCH (21:17)
[2019-01-30] MEDS: CITALOPRAM 10 MG TABLET PO SCH (21:18)
[2019-01-31] MEDS: LEVOTHYROXINE SOD 0.1 MG TAB PO SCH (06:05)
[2019-01-31 07:02] LABS: Albumin 2.2 g/dL (3.4-5.0); BUN Blood Urea Nitrogen 59 mg/dL (7-18); Bicarbonate 24 mmol/L (21-32); Ferritin 414.9 ng/mL (26-388); Folic Acid, (Folate) > 20.0 ng/mL (3.1-17.5); Glucose Level 147 mg/dL (74-106); Phosphorus 5.5 mg/dL (2.5-4.9); Potassium 4.2 mmol/L (3.5-5.1); Sodium Level 142 mmol/L (136-145); Transferrin 99 mg/dL (200-360); Uric Acid 6.6 mg/dL (3.5-7.2)
[2019-01-31] MEDS: INSULIN -REGULAR HUMAN 50 UNIT/0.5 ML ML SQ SCH ×2 (07:30→11:30)
[2019-01-31] MEDS: ARFORMOTEROL TARTRATE 15 MCG/2 ML VIAL.NEB NEB SCH (07:50)
[2019-01-31 08:55] VITALS: O2SAT 97
[2019-01-31] MEDS: SODIUM BICARB 325 MG TAB PO SCH (08:56)
[2019-01-31] MEDS: GLIMEPIRIDE 2 MG TABLET PO SCH (08:56)
[2019-01-31] MEDS: DOXYCYCLINE 100 MG CAP PO SCH (08:57)
[2019-01-31] MEDS: TRAZODONE 50 MG TABLET PO SCH (08:57)
[2019-01-31] MEDS: ATORVASTATIN 40 MG TAB PO SCH (08:57)
[2019-01-31] MEDS: cloNIDine HCl 0.1 MG TAB PO SCH (08:57)
[2019-01-31] MEDS: NIFEDIPINE XL 60 MG TABLET PO SCH (08:57)
[2019-01-31] MEDS: ALLOPURINOL 100 MG TAB PO SCH (08:58)
[2019-01-31] MEDS: METOPROLOL XL 50 MG TAB PO SCH (08:58)
[2019-01-31] MEDS: FOLIC ACID 1 MG TABLET PO SCH (08:58)
[2019-01-31] MEDS: INSULIN GLARGINE 100 UNITS/ML SQ SCH (08:58)
[2019-01-31] MEDS: ASPIRIN 81 MG CHEWABLE TABLET PO SCH (08:58)
[2019-01-31 13:05] VITALS: BP 158/96; TEMP 97.9
--- NOTE | 2019-01-31 13:16 | PN ---
Date of Progress Note: 01/31/2019 Subjective: The patient was admitted with gastroenteritis and acute kidney injury on chronic kidney disease. The patient's GI symptoms have been improved. Kidney function continue to decline. Physical Examination: Vital Signs: Blood pressure 180/83, pulse of 54. The patient had good urine output. No nausea. No vomiting. Chest: Clear to auscultation. Heart: S1 and S2, regular. Abdomen: Soft and nontender. Extremities: No edema. Neurologic: Alert and oriented. No tremor. Laboratory Data: WBC 6, H and H 8.5/25.7, platelet of 157. Sodium 142, potassium 4.2, bicarb 24, BU N 59, creatinine 4.3, GFR of 13, uric acid 6.6, calcium 8.3, phosphorus 5.5, T-sat of 40, ferritin of 414, albumin 2.2. PTH of 184. Urinalysis negative for infection. Serology still pending. Current Medications: The patient on its include: 1.Aspirin. 2.Doxycycline. 3.Albuterol. 4.Atorvastatin. 5.Lovenox. 6.Clonidine 0.1 b.i.d. 7.Metoprolol 50 b.i.d. 8.Nifedipine 60. 9.Dilantin. 10.Trazodone. 11.Ambien. 12.Sodium bicarb 650 b.i.d. 13.Glimepiride. 14.Levothyroxine. 15.D5 half at 75 per hour. Assessment And Plan: 1.Chronic kidney disease stage 4, progression to stage 5/end-stage. No uremic symptoms. No hyperka lemia. Marginal acidosis responding to sodium bicarb. I had long discussion with the patient in the presence of the regarding the need possible to initiate renal replacement therapy. I do not se e emergency to be initiated and I conveyed that to the patient, but patient mostly he can end up init iating renal replacement therapy in the short future. The patient not comfortable to initiated in is admission like to be consulted with his primary drapery examiner. The patient understand risks, benef its, alternatives, and agreed. I am going to go ahead and discontinue IV fluid. The patient is yadira g to be cleared from the renal standpoint for discharge planning to follow up with his drapery examiner jaqueline ivey. 2.Hypertension, not controlled. I am going to go ahead and increase his clonidine to 3 times a day. 3.Acidosis secondary to renal failure. Continue current sodium bicarb. 4.Secondary hyperparathyroid, stable. 5.Gastroenteritis as by primary. LEONARDO/OLIVER Voice ID: [id number] Report ID: [id number]
--- NOTE | 2019-01-31 13:50 | P.DS ---
Admission Date: 01/27/19 Discharge Date: 01/31/19 Disposition: ROUTINE DISCHARGE Discharge Condition: GOOD Reason for Admission: Abnormal chest x-ray hypoxemia Consultations: Pulmonology Nephrology Brief History of Present Illness: The patient is a 78-year-old male with past medical history of hypertension, hyperlipidemia, chronic kidney disease, diabetes, who was in his usual state of health until Tuesday, when the patient started having sudden onset of shortness of breath, cough, scant sputum production. The patient does report some ill contacts, fevers as high as 101.7 and chills. The patient has decreased p.o. intake, nausea and vomiting. The patient denies any choking episodes or difficulty swallowing his food. The patient therefore came into the ER for further evaluation. His symptoms are constant, moderate, progressively worsening. In the ER, his workup revealed a white blood cell count of 12.6 with left shift, did not appear to be septic. The patient's imaging studies revealed a right upper lobe pneumonia. Therefore, he was referred to the hospital for further evaluation and treatment. Hospital Course: Patient was admitted with RUL PNA, possible aspiration. He was started on IV antibiotics. He was evaluated by speech therapy and passed swallow study. He did not have any episodes of coughing/choking with PO intake. His cultures remained negative. He was noted to have elevated right hemidiaphragm on imaging. He continued to desat on RA, pulmonology was consulted. His symptoms did improve and he was satting above 93% on room air prior to discharge. He was then cleared for discharge by pulmonology. Throughout the stay, pt did have some worsening of kidney function above his CKD. Nephrology was consulted, and initially it was thought that patient may need dialysis while here. Per patient's wishes though, there was no procedure of catheter placement or dialysis at this time. Patient wishes to follow up with his heel shaper for nay further kidney/renal intervention and evaluation. He has an appointment scheduled already for this week. Electrolytes were stable therefore no need for urgent dialysis at this time but risks were explained to patient and he and at bedside verbalized understanding. All questiosn were answered and he was then cleared for discharge by both pulmonology and nephrology. Vital Signs/Physical Exam: Temp Pulse Resp BP Pulse Ox 97.9 F 54 18 158/96 H 93 01/31/19 12:00 01/31/19 12:00 01/31/19 12:00 01/31/19 12:00 01/31/19 12:00 General: Alert, In no apparent distress, Oriented x3 HEENT: Atraumatic, PERRLA, EOMI Neck: Supple, JVD not distended Respiratory: Clear to auscultation bilaterally, Normal air movement Cardiovascular: Regular rate/rhythm, Normal S1 S2 Gastrointestinal: Normal bowel sounds, No tenderness Musculoskeletal: No tenderness Integumentary: No rashes Neurological: Normal speech, Normal tone, Normal affect Lymphatics: No axilla or inguinal lymphadenopathy Laboratory Data at Discharge: WBC 6.0 K/uL (4.3-10.9) D 01/30/19 05:45 Hgb 8.5 g/dL (13.6-17.9) L 01/30/19 05:45 Hct 25.7 % (39.6-49.0) L 01/30/19 05:45 Plt Count 157 K/uL (152-406) 01/30/19 05:45 Sodium 142 mmol/L (136-145) 01/31/19 05:48 Potassium 4.2 mmol/L (3.5-5.1) 01/31/19 05:48 BUN 59 mg/dL (7-18) H 01/31/19 05:48 Creatinine 4.34 mg/dL (0.55-1.3) H 01/31/19 05:48 Glucose 147 mg/dL (74-106) H 01/31/19 05:48 Uric Acid 6.6 mg/dL (3.5-7.2) D 01/31/19 05:48 Phosphorus 5.5 mg/dL (2.5-4.9) H 01/31/19 05:48 Total Bilirubin 0.1 mg/dL (0.2-1.0) L 01/30/19 05:45 AST 65 U/L (15-37) H 01/30/19 05:45 ALT 47 U/L (12-78) 01/30/19 05:45 Alkaline Phosphatase 68 U/L (45-117) 01/30/19 05:45 Lipase 87 U/L (73-393) 01/27/19 08:10 Home Medications: Allopurinol [Zyloprim*] 100 mg PO DAILY 01/27/19 Aspirin 81 mg PO DAILY 01/27/19 Atorvastatin Calcium [Lipitor] 40 mg PO DAILY 01/27/19 Cholecalciferol (Vitamin D3) [Vitamin D3] 5,000 unit PO DAILY 01/27/19 Citalopram Hydrobromide [Citalopram HBr] 20 mg PO BEDTIME 01/27/19 Clonidine HCl [Clonidine HCl ER] 0.1 mg PO BID 01/27/19 Cyanocobalamin (Vitamin B-12) [Vitamin B12] 1,000 mcg PO DAILY 01/27/19 Folic Acid 1 mg PO DAILY 01/27/19 Furosemide [Lasix*] 20 mg PO DAILY 01/27/19 Glimepiride 4 mg PO BID 01/27/19 Insulin Glargine,Hum.rec.anlog [Lantus Solostar] 15 units SQ DAILY 01/27/19 Levothyroxine Sodium 100 mcg PO DAILY 01/27/19 Metoprolol Succinate [Toprol Xl*] 25 mg PO BID 01/27/19 Nifedipine [Nifedipine ER] 30 mg PO DAILY 01/27/19 PHENYTOIN ER Cap [Dilantin ER Cap*] 300 mg PO BEDTIME 01/27/19 Pioglitazone HCl 45 mg PO DAILY 01/27/19 Sodium Bicarbonate 10 gr PO BID 01/27/19 Trazodone [Desyrel*] 100 mg PO BID 01/27/19 Zolpidem Tartrate [Ambien*] 5 mg PO BEDTIME 01/27/19 Arformoterol Tartrate [Brovana] 15 mcg NEB BIDRESP #1 vial.neb 01/31/19 Doxycycline Monohydrate 100 mg PO BID #14 capsule 01/31/19 predniSONE [Deltasone*] 10 mg PO BID #14 tab 01/31/19 New Medications: Arformoterol Tartrate [Brovana] 15 mcg NEB BIDRESP #1 vial.neb Doxycycline Monohydrate 100 mg PO BID #14 capsule predniSONE [Deltasone*] 10 mg PO BID #14 tab Patient Discharge Instructions: Please follow up with your primary care physician in 2-3 days. Please follow up with your heel shaper, as we discussed here. Please follow up with Pulmonology, Dr. Fields in 1 week. Please return to the Emergency room for worsening symptoms. Diet: Renal Activity: Ad alexandria Followup: Rip Fields MD [ACTIVE - CAN ADMIT] - Christina Mcrae MD [ACTIVE - CAN ADMIT] - Time spent managing pt's care (in minutes): 55
[2019-01-31] MEDS ORDERED: cloNIDine HCl 0.1 MG TAB PO SCH (14:00)
[2019-01-31 19:55] LABS: Rheumatoid Factor NEG (NEG)
[2019-02-02 17:42] LABS: HBsAG Nonreactive (Nonreactive)
[2019-02-03 04:26] LABS: Albumin, (SPE) 2.5 g/dL (3.8-4.8); Alpha-1-Globulins 0.4 g/dL (0.2-0.3); Alpha-2-Globulins 0.9 g/dL (0.5-0.9); Gamma Globulins 0.8 g/dL (0.8-1.7); INTERPRETATION REPORT
[2019-02-04 18:53] LABS: P-ANCA Anti-Myeloperoxidase Ab <1.0 AI (<1.0)
== END 2019-01-31 15:10 | disposition home or self-care (01) | DRG 194 ==
LOC: ER 07:48 → ERHOLD 11:52 → 2ND 15:46
PROVIDERS: ADMIT Family Medicine; ATTEND Family Medicine
DX: J18.9 Pneumonia, unspecified organism (principal); N17.9 Acute kidney failure, unspecified; E87.2 Acidosis; I12.0 Hypertensive chronic kidney disease with stage 5 chronic kidney disease or end stage renal disease; N18.5 Chronic kidney disease, stage 5; R09.02 Hypoxemia; E11.22 Type 2 diabetes mellitus with diabetic chronic kidney disease; E11.21 Type 2 diabetes mellitus with diabetic nephropathy; E11.40 Type 2 diabetes mellitus with diabetic neuropathy, unspecified; M10.9 Gout, unspecified; E78.2 Mixed hyperlipidemia; I25.10 Atherosclerotic heart disease of native coronary artery without angina pectoris; E03.9 Hypothyroidism, unspecified; E55.9 Vitamin D deficiency, unspecified; K52.9 Noninfective gastroenteritis and colitis, unspecified; D64.9 Anemia, unspecified
CPT/HCPCS: 36415; 71045; 71046; 71250; 76770; 80048; 80053; 80069; 80076; 81003; 81015; 82043; 82553; 82570; 82607; 82728; 82746; 82805; 82962; 83520; 83540; 83605; 83690; 83970; 84156; 84165; 84466; 84550; 85025; 86021; 86038; 86160; 86317; 86335; 86430; 86705; 86706; 86803; 87040; 87205; 87340; 92610; 93005; 93306; 94640; 94760; 96361; 96365; 96366; 96375; 97116; 97163; 97530; 99285; J0456; J0696; J1650; J2405; J2543; J7030; J7605

== ENCOUNTER 2022-02-22 15:35 | Inpatient (IN) | payer OTHER ==
[2022-02-22 16:21] LABS: Absolute Lymphocytes (CBC) 2.1 K/uL (0.7-4.9); Hematocrit 36.4 % (39.6-49.0); Lymphocytes % 19.5 % (15.3-44.8); MCV 94.4 fL (80-100); MPV 8.6 fL (7.6-11.3); RBC Red Blood Cell Count 3.86 M/uL (4.33-5.43)
[2022-02-22 16:31] LABS: Potassium 3.5 mmol/L (3.5-5.1)
--- NOTE | 2022-02-22 16:33 | RAD REPORT ---
EXAM DESCRIPTION: CT - Ct Stroke Brain Wo Cont - 02/22/2022 4:24 pm CLINICAL HISTORY: Neuro deficit, acute, stroke suspected COMPARISON: No comparisons TECHNIQUE: Axial 5 millimeter thick images of the head were obtained without IV contrast. All CT scans are performed using dose optimization technique as appropriate and may include automated exposure control or mA/KV adjustment according to patient size. FINDINGS: No intracranial hemorrhage, mass, or cerebral edema. No acute cortical level infarction id entifiable. No cortical edema or sulcal effacement. Moderate severity atrophy and moderate severity c hronic ischemic changes are present. Ventricles are in proportion to the volume loss. Ortiz matter-whi te matter differentiation is preserved. Physiologic calcifications are present. Patient has very dense calcifications of the arterial tree. N o globe or orbital content abnormality. Visualized portions of the mastoid air cells, paranasal sinuses, and orbits are unremarkable. Findings telephoned to Dr. Edgar 4:29 p.m.. IMPRESSION: No CT evidence of acute intracranial process. Moderate severity atrophy and moderate severity chronic ischemic changes are present. The chronic isc hemic change can mask nonhemorrhagic CVA.
[2022-02-22 16:34] LABS: Protime INR 0.99
[2022-02-22] MEDS ORDERED: TENECTEPLASE 50 MG/10 ML VIAL IV ONE (16:52)
[2022-02-22] MEDS ORDERED: LABETALOL 20 MG/4ML SYRINGE IV ONE (17:04)
--- NOTE | 2022-02-22 17:29 | RAD REPORT ---
EXAM DESCRIPTION: RAD - Chest Single View - 02/22/2022 5:10 pm CLINICAL HISTORY: possible CVA COMPARISON: Two view chest January 2019 TECHNIQUE: AP portable chest image was obtained 02/22/2022 5:10 pm . FINDINGS: Lung volumes are low. Right hemidiaphragm elevation is again noted with bowel interpositio n between the liver and right hemidiaphragm. No acute lung parenchymal process seen. No failure or volume overload finding seen. Heart and vasculature are normal. No measurable pleural effusion and no pneumothorax. No acute bony abnormality seen. No acute aortic findings suspected. IMPRESSION: No acute cardiopulmonary process.
--- NOTE | 2022-02-22 17:43 | EDPHYS ---
Physician Documentation [facility] Name: Uday Rice Age: 81 yrs Sex: Male : 1940 Arrival Date: 02/22/2022 Time: 15:49 Bed 3 Private MD: ED Physician Stu Edgar HPI: 02/22 16:52 This 81 yrs old Male presents to ER via EMS with complaints of difficulty with speech. rn 16:56 The patient presents to the emergency department with a speech or higher order brain rn function problem, dysarthria. Onset: The symptoms/episode began/occurred just prior to arrival. Associated signs and symptoms: Pertinent negatives: altered mental status, fever, headache, neck stiffness, paresthesias, seizure, syncope, near-syncope, blurred vision, double vision, visual field changes, loss of vision, weakness. Severity of symptoms: At their worst the symptoms were moderate in the emergency department the symptoms have resolved. Current symptoms: Currently, the patient is not experiencing any symptoms. The patient has experienced a previous episode. The patient has not recently seen a physician. Pt reports difficulty speaking clearly, happened for about 15-20 min, now resolved. Similar episode 1 week ago that also resolved on its own. No head injury or trauma. No bleeding. . Historical: - Allergies: 16:43 No Known Allergies; jl7 - PMHx: 16:43 Diabetes - NIDDM; Hypertension; Hypothyroidism; Renal Disease; Dialysis; jl7 - Immunization history:: Adult Immunizations unknown. - Social history:: Smoking status: Patient denies any tobacco usage or history of. - Family history:: not pertinent. - Hospitalizations: : No recent hospitalization is reported. ROS: 16:56 Constitutional: Negative for fever, chills, and weight loss, Eyes: Negative for injury, rn pain, redness, and discharge, Neck: Negative for injury, pain, and swelling, Cardiovascular: Negative for chest pain, palpitations, and edema, Respiratory: Negative for shortness of breath, cough, wheezing, and pleuritic chest pain, Abdomen/GI: Negative for abdominal pain, nausea, vomiting, diarrhea, and constipation, Back: Negative for injury and pain, MS/Extremity: Negative for injury and deformity, Skin: Negative for injury, rash, and discoloration, Neuro: Negative for headache, weakness, numbness, tingling, and seizure. Exam: 16:56 Constitutional: This is a well developed, well nourished patient who is awake, alert, rn and in no acute distress. Head/Face: Normocephalic, atraumatic. Eyes: Pupils equal round and reactive to light, extra-ocular motions intact. ENT: Mucous membranes moist. Cardiovascular: Regular rate and rhythm. No pulse deficits. Respiratory: No increased work of breathing, no retractions or nasal flaring. Abdomen/GI: Soft, non-tender Skin: Warm, dry, no bleeding from fistula. MS/ Extremity: Pulses equal, no cyanosis. Neuro: Awake and alert, GCS 15, oriented to person, place, time, and situation. Cranial nerves II-XII grossly intact. Motor strength 5/5 in all extremities. Sensory grossly intact. Cerebellar exam normal. Vital Signs: 15:49 BP 218 / 78; Pulse 86; Resp 17; Temp 97.9(O); Pulse Ox 98% ; Weight 90.72 kg; Height 6 jh6 ft. 2 in. (187.96 cm); Pain 0/10; 16:43 Weight 91 kg (M); jl7 18:52 BP 187 / 80; Pulse 79; Resp 15; Pulse Ox 97% ; jl7 20:11 BP 205 / 88; ke1 16:43 Body Mass Index 25.76 (91.00 kg, 187.96 cm) jl7 NIH Stroke Scale Scores: 16:05 NIHSS Score: 0 jl7 16:35 NIHSS Score: 6 jl7 17:17 NIHSS Score: 6 rn MDM: 15:51 Patient medically screened. rn 16:30 ED course: CT head without acute findings per Dr Mora. . rn 16:38 ED course: Pt arrived with resolved symptoms. When came back from CT, which does not rn show acute findings or hemorrhage, but exhibited return of speech problem, + dysarthria and right lower facial droop. Consulted with Dr. Calderón, states believes patient can benefit from TNK and recommends giving it. Patient consented and TNK ordered. . 16:47 ED course: Last known normal 1624. Patient and family member in agreement to receive rn TNK. . 17:41 Data reviewed: vital signs, nurses notes, lab test result(s), EKG, radiologic studies, rn CT scan, and as a result, I will admit patient. Counseling: I had a detailed discussion with the patient and/or guardian regarding: the historical points, exam findings, and any diagnostic results supporting the discharge/admit diagnosis, lab results, radiology results, the need for further work-up and treatment in the hospital. Response to treatment: the patient's symptoms have mildly improved after treatment, and as a result, I will admit patient. Admission orders: after a detailed discussion of the patient's condition and case, the admit orders are written by me. 02/22 15:52 Order name: Basic Metabolic Panel; Complete Time: 17:40 02/22 15:52 Order name: CBC with Diff; Complete Time: 17:40 02/22 15:52 Order name: Protime (+inr); Complete Time: 17:40 02/22 15:52 Order name: Ptt, Activated; Complete Time: 17:40 02/22 15:52 Order name: SARS-COV-2 RT PCR (Document "Date of Onset" if Symptomatic); Complete Time: rn 18:02/22 15:56 Order name: Glucose, Ancillary Testing; Complete Time: 16:23 EDMS 02/22 15:52 Order name: CT Stroke Brain w/o Contrast; Complete Time: 17:40 02/22 15:52 Order name: Stroke CXR 1 View; Complete Time: 17:40 02/22 15:52 Order name: EKG; Complete Time: 15:53 rn 02/22 15:52 Order name: Accucheck; Complete Time: 17:42 02/22 15:52 Order name: Cardiac monitoring; Complete Time: 17:43 02/22 15:52 Order name: EKG - Nurse/Tech; Complete Time: 17:43 02/22 15:52 Order name: IV Saline Lock; Complete Time: 17:43 02/22 15:52 Order name: Labs collected and sent; Complete Time: 17:43 02/22 15:52 Order name: O2 Per Protocol; Complete Time: 17:43 02/22 15:52 Order name: O2 Sat Monitoring; Complete Time: 17:42 02/22 15:52 Order name: Stroke Swallow Screen; Complete Time: 17:42 rn Administered Medications: 16:50 Drug: TNK FOR STROKE - Tenecteplase 0.25 mg/kg {Co-Signature: jh6 (Cece Harrell RN).} Route: IV; Rate: per protocol; Site: right antecubital; 16:52 Follow up: IV Status: Completed infusion jl7 18:56 Follow up: Response: Marked relief of symptoms jl7 16:55 Drug: Labetalol 5 mg Route: IV; Rate: calculated rate; Site: right antecubital; jl7 16:57 Follow up: IV Status: Completed infusion jl7 17:15 Follow up: Response: No adverse reaction; Blood pressure is lowered jl7 18:56 Drug: Labetalol 5 mg Route: IV; Rate: calculated rate; Site: right forearm; jl7 20:10 Follow up: Response: Blood pressure is elevated ke1 20:18 Drug: cloNIDine 0.1 mg Route: PO; ke1 Disposition Summary: 02/22/22 17:42 Hospitalization Ordered Hospitalization Status: Inpatient Admission rn Provider: Rip Fields rn Location: Intensive Care Unit rn Condition: Stable rn Problem: new rn Symptoms: have improved rn Bed/Room Type: Standard rn Room Assignment: 8-(02/22/22 20:01) 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 Total time: 45 minutes NIH Stroke Scale - NIH Stroke Score Date: 02/22/2022 Time: 16:05 Total Score = 0 1a. Level of Consciousness (LOC) - 0(Alert) 1b. Level of Consciousness (LOC) (Month \\T\\ Age) - 0(Both) 1c. LOC Commands (Open \\T\\ Closes Eyes/Apricot Washer) - 0(Both) 2. Best Gaze (Lateral Gaze Paresis) - 0(Normal) 3. Visual Field Loss - 0(No visual loss) 4. Facial Palsy - 0(Normal) 5a. Left Arm: Motor (10-second hold) - 0(No drift) 5b. Right Arm: Motor (10-second hold) - 0(No drift) 6a. Left Leg: Motor (5-second hold - always test supine) - 0(No drift) 6b. Right Leg: Motor (5-second hold - always test supine) - 0(No drift) 7. Limb Ataxia (finger/nose \\T\\ heel/[place] - test with eyes open) - 0(Absent) 8. Sensory Loss (pinprick arms/legs/face) - 0(Normal) 9. Best Language: Aphasia (description/naming/reading) - 0(No aphasia) 10. Dysarthria (speech clarity - read or repeat words) - 0(Normal) 11. Extinction and Inattention (visual/tactile/auditory/spatial/personal) - 0(No abnormality) Initials: jl7 NIH Stroke Scale - NIH Stroke Score Date: 02/22/2022 Time: 16:35 Total Score = 6 1a. Level of Consciousness (LOC) - 0(Alert) 1b. Level of Consciousness (LOC) (Month \\T\\ Age) - 1(One) 1c. LOC Commands (Open \\T\\ Closes Eyes/Apricot Washer) - 1(One) 2. Best Gaze (Lateral Gaze Paresis) - 0(Normal) 3. Visual Field Loss - 0(No visual loss) 4. Facial Palsy - 1(Minor Paralysis) 5a. Left Arm: Motor (10-second hold) - 0(No drift) 5b. Right Arm: Motor (10-second hold) - 0(No drift) 6a. Left Leg: Motor (5-second hold - always test supine) - 0(No drift) 6b. Right Leg: Motor (5-second hold - always test supine) - 0(No drift) 7. Limb Ataxia (finger/nose \\T\\ heel/[place] - test with eyes open) - 0(Absent) 8. Sensory Loss (pinprick arms/legs/face) - 0(Normal) 9. Best Language: Aphasia (description/naming/reading) - 2(Severe aphasia) 10. Dysarthria (speech clarity - read or repeat words) - 1(Mild to Moderate) 11. Extinction and Inattention (visual/tactile/auditory/spatial/personal) - 0(No abnormality) Initials: jl7 NIH Stroke Scale - NIH Stroke Score Date: 02/22/2022 Time: 17:17 Total Score = 6 1a. Level of Consciousness (LOC) - 0(Alert) 1b. Level of Consciousness (LOC) (Month \\T\\ Age) - 1(One) 1c. LOC Commands (Open \\T\\ Closes Eyes/Apricot Washer) - 1(One) 2. Best Gaze (Lateral Gaze Paresis) - 0(Normal) 3. Visual Field Loss - 0(No visual loss) 4. Facial Palsy - 1(Minor Paralysis) 5a. Left Arm: Motor (10-second hold) - 0(No drift) 5b. Right Arm: Motor (10-second hold) - 0(No drift) 6a. Left Leg: Motor (5-second hold - always test supine) - 0(No drift) 6b. Right Leg: Motor (5-second hold - always test supine) - 0(No drift) 7. Limb Ataxia (finger/nose \\T\\ heel/[place] - test with eyes open) - 0(Absent) 8. Sensory Loss (pinprick arms/legs/face) - 0(Normal) 9. Best Language: Aphasia (description/naming/reading) - 2(Severe aphasia) 10. Dysarthria (speech clarity - read or repeat words) - 1(Mild to Moderate) 11. Extinction and Inattention (visual/tactile/auditory/spatial/personal) - 0(No abnormality) Initials: rn Signatures: Dispatcher [employer] EDMS Stu Edgar MD MD rn Garcia, Cindy RN Doreen Reid RN RN [id number] Cece Harrell RN RN [id number] Katerin Ellis RN RN ke1 Tami Pemberton PA PA sb3 Cece Harrell RN [email or web address] Corrections: (The following items were deleted from the chart) 16:30 15:58 Head Angio+CT.RAD.BRZ ordered. EDMS EDMS 16:50 16:33 Brain Wo Cont ordered. EDMS EDMS 17:19 16:47 NIHSS Score: 4 rn rn 20:01 17:42 rn cg
--- NOTE | 2022-02-22 17:43 | ER ---
Nurse's Notes [facility] Name: Uday Rice Age: 81 yrs Sex: Male : 1940 Arrival Date: 02/22/2022 Time: 15:49 Bed 3 Private MD: Diagnosis: Aphasia following cerebral infarction;End stage renal disease;SARS-associated coronavirus as the cause of diseases classified elsewhere Presentation: 02/22 15:49 Chief complaint: EMS states: episode of aphasia and elevated B/P after dialysis today. [facility] BS 147 with ems and is A\\T\\OX4 on arrival. Coronavirus screen: Vaccine status: Patient reports receiving the 2nd dose of the covid vaccine. Ebola Screen: Patient negative for fever greater than or equal to 101.5 degrees Fahrenheit, and additional compatible Ebola Virus Disease symptoms Patient denies exposure to infectious person. Patient denies travel to an Ebola-affected area in the 21 days before illness onset. Initial Sepsis Screen: Does the patient meet any 2 criteria? No. Patient's initial sepsis screen is negative. Does the patient have a suspected source of infection? No. Patient's initial sepsis screen is negative. Risk Assessment: Do you want to hurt yourself or someone else? Patient reports no desire to harm self or others. Onset of symptoms was February 22, 2022. 15:49 Method Of Arrival: EMS: [facility] 15:49 Acuity: AMY 2 [facility] Triage Assessment: 15:40 General: Appears in no apparent distress. Behavior is calm, cooperative. Pain: Denies [facility] pain. Historical: - Allergies: 16:43 No Known Allergies; jl7 - PMHx: 16:43 Diabetes - NIDDM; Hypertension; Hypothyroidism; Renal Disease; Dialysis; jl7 - Immunization history:: Adult Immunizations unknown. - Social history:: Smoking status: Patient denies any tobacco usage or history of. - Family history:: not pertinent. - Hospitalizations: : No recent hospitalization is reported. Screenin:55 Abuse screen: Denies threats or abuse. Nutritional screening: No deficits noted. [facility] Tuberculosis screening: No symptoms or risk factors identified. Fall Risk Secondary diagnosis (15 points) impaired mobility, IV access (20 points). Assessment: 15:56 General: Appears in no apparent distress. Behavior is calm, cooperative. General: 6 reported that pt had similar episode last week of aphasia and not able to speak. pt stated that he knew what he wanted to say but he was unable to get the words out. episode lasted aprox 20min. . Neuro: No deficits noted. Level of Consciousness is awake, alert, obeys commands, Oriented to person, place, situation, Candy Depositing Machine Operator are equal bilaterally Moves all extremities. Speech is normal, Pupils are PERRLA. 16:06 VAN Scoring: Arm Drift: Patients demonstrates NO arm weakness. Patient is VAN Negative. jl7 TNKase (Tenecteplase) Screening: Indications: Definite evidence of stroke, ischemic, embolic, or hypertensive: Yes. Treatment will start within 4.5 hours onset of symptoms: Yes. No evidence of intracranial hemorrhage or CT of head and no evidence of peripheral hemorrhage or recent CVA: Yes. 16:10 The patient has not been NPO before screening. The patient is currently on the jl7 following diet: home The patient is alert, and able to follow commands. The patient does not exhibit slurred or garbled speech. The patient is not exhibiting difficulty speaking. The patient does not exhibit difficulty understanding words. The patient is able to swallow own secretions with no drooling or need for suction. Patient tolerated one teaspoon of water. No drooling, immediate coughing, gurgling, or clearing of the throat was noted. The patient tolerated 90mL of water. No drooling, immediate coughing, gurgling, or clearing of the throat was noted. The patient passed the bedside swallow screening. Oral medications may be given as ordered. Contact Physician for further diet orders. Provider notified of bedside swallow screening results: Stu Edgar MD. 16:35 Reassessment: Transported pt to CT via stretcher. Pt clearly stated name on the was to [facility] CT, on arrival to CT at 1625 pt clearly stated "I can try." when this nurse asked him to if he could stand and sit on the CT table. This nurse instead had him moved to the CT table by scooting over for fall prevention. Once pt transported back to ER room 3, pt's requested staff back in the room and pt's speech is now garbled. Dr. Edgar notified and at bedside assessing the pt and discussing POC options with pt and . Last known normal this episode is 1625. 16:50 Reassessment: TNK administered, see VS and neurological flowsheet for further [facility] documentation. 18:45 Reassessment: 1845: pt 's reports pt had a surgery on right lower lip and his jl7 mouth always has a droop on the right side. Pt's reports his face is at baseline. 19:00 Reassessment: Report given to ITALO Conklin. Pt neurologically back to baseline. [facility] 19:30 Reassessment: Patient appears in no apparent distress at this time. Patient and/or ke1 family updated on plan of care and expected duration. Pain level reassessed. Patient is alert, oriented x 3, equal unlabored respirations, skin warm/dry/pink. Patient denies pain at this time. Pressure dressing applied on left arm dialysis access due to bleeding. Bleeding stopped. Vital Signs: 15:49 BP 218 / 78; Pulse 86; Resp 17; Temp 97.9(O); Pulse Ox 98% ; Weight 90.72 kg; Height 6 [facility] ft. 2 in. (187.96 cm); Pain 0/10; 16:43 Weight 91 kg (M); jl7 18:52 BP 187 / 80; Pulse 79; Resp 15; Pulse Ox 97% ; jl7 20:11 BP 205 / 88; ke1 16:43 Body Mass Index 25.76 (91.00 kg, 187.96 cm) 7 NIH Stroke Scale Scores: 16:05 NIHSS Score: 0 jl7 16:35 NIHSS Score: 6 [facility] 17:17 NIHSS Score: 6 administration intern Course: 15:49 Patient arrived in ED. [facility] 15:49 Cece Harrell, ITALO is Primary Nurse. [facility] 15:51 Stu Edgar MD is Attending Physician. rn 15:54 Triage completed. [facility] 15:55 Arm band placed on right wrist. EKG completed in triage. Results shown to . EKG done [facility] per protocol. Labs ordered per protocol. CT ordered. 15:55 Maintain EMS IV. Dressing intact. Good blood return noted. Site clean \\T\\ dry. Gauge \\T\\ 6 site: 20g rt fa. 15:56 Placed in gown. Bed in low position. Call light in reach. Side rails up X 1. Adult w/ [facility] patient. 16:00 Client placed on continuous cardiac and pulse oximetry monitoring. NIBP monitoring jl7 applied. 16:26 CT Stroke Brain w/o Contrast In Process Unspecified. EDMS 16:30 Initial lab(s) drawn, by ED staff, sent to lab. EKG done, by ED staff, reviewed by josefina Edgar MD COVID swab sent to lab. 16:50 Inserted saline lock: 22 gauge in right hand, using aseptic technique. jl7 17:12 Stroke CXR 1 View In Process Unspecified. EDMS 17:41 Rip Fields MD is Hospitalizing Provider. rn 20:32 Patient admitted, IV remains in place. ke1 Administered Medications: 16:50 Drug: TNK FOR STROKE - Tenecteplase 0.25 mg/kg {Co-Signature: jh6 (Cece Harrell RN).} Route: IV; Rate: per protocol; Site: right antecubital; 16:52 Follow up: IV Status: Completed infusion jl7 18:56 Follow up: Response: Marked relief of symptoms jl7 16:55 Drug: Labetalol 5 mg Route: IV; Rate: calculated rate; Site: right antecubital; jl7 16:57 Follow up: IV Status: Completed infusion jl7 17:15 Follow up: Response: No adverse reaction; Blood pressure is lowered jl7 18:56 Drug: Labetalol 5 mg Route: IV; Rate: calculated rate; Site: right forearm; jl7 20:10 Follow up: Response: Blood pressure is elevated ke1 20:18 Drug: cloNIDine 0.1 mg Route: PO; ke1 Medication: 18:45 VIS not applicable for this client. jl7 Outcome: 17:42 Decision to Hospitalize by Provider. rn 20:32 Admitted to ICU accompanied by nurse. ke1 20:32 Condition: good 20:32 Instructed on the need for admit. 20:33 Patient left the ED. ke1 NIH Stroke Scale - NIH Stroke Score Date: 02/22/2022 Time: 16:05 Total Score = 0 1a. Level of Consciousness (LOC) - 0(Alert) 1b. Level of Consciousness (LOC) (Month \\T\\ Age) - 0(Both) 1c. LOC Commands (Open \\T\\ Closes Eyes/Ichthyologist) - 0(Both) 2. Best Gaze (Lateral Gaze Paresis) - 0(Normal) 3. Visual Field Loss - 0(No visual loss) 4. Facial Palsy - 0(Normal) 5a. Left Arm: Motor (10-second hold) - 0(No drift) 5b. Right Arm: Motor (10-second hold) - 0(No drift) 6a. Left Leg: Motor (5-second hold - always test supine) - 0(No drift) 6b. Right Leg: Motor (5-second hold - always test supine) - 0(No drift) 7. Limb Ataxia (finger/nose \\T\\ heel/[place]field - test with eyes open) - 0(Absent) 8. Sensory Loss (pinprick arms/legs/face) - 0(Normal) 9. Best Language: Aphasia (description/naming/reading) - 0(No aphasia) 10. Dysarthria (speech clarity - read or repeat words) - 0(Normal) 11. Extinction and Inattention (visual/tactile/auditory/spatial/personal) - 0(No abnormality) Initials: jl7 NIH Stroke Scale - NIH Stroke Score Date: 02/22/2022 Time: 16:35 Total Score = 6 1a. Level of Consciousness (LOC) - 0(Alert) 1b. Level of Consciousness (LOC) (Month \\T\\ Age) - 1(One) 1c. LOC Commands (Open \\T\\ Closes Eyes/Ichthyologist) - 1(One) 2. Best Gaze (Lateral Gaze Paresis) - 0(Normal) 3. Visual Field Loss - 0(No visual loss) 4. Facial Palsy - 1(Minor Paralysis) 5a. Left Arm: Motor (10-second hold) - 0(No drift) 5b. Right Arm: Motor (10-second hold) - 0(No drift) 6a. Left Leg: Motor (5-second hold - always test supine) - 0(No drift) 6b. Right Leg: Motor (5-second hold - always test supine) - 0(No drift) 7. Limb Ataxia (finger/nose \\T\\ heel/mansfield - test with eyes open) - 0(Absent) 8. Sensory Loss (pinprick arms/legs/face) - 0(Normal) 9. Best Language: Aphasia (description/naming/reading) - 2(Severe aphasia) 10. Dysarthria (speech clarity - read or repeat words) - 1(Mild to Moderate) 11. Extinction and Inattention (visual/tactile/auditory/spatial/personal) - 0(No abnormality) Initials: josefina NIH Stroke Scale - NIH Stroke Score Date: 02/22/2022 Time: 17:17 Total Score = 6 1a. Level of Consciousness (LOC) - 0(Alert) 1b. Level of Consciousness (LOC) (Month \\T\\ Age) - 1(One) 1c. LOC Commands (Open \\T\\ Closes Eyes/Ichthyologist) - 1(One) 2. Best Gaze (Lateral Gaze Paresis) - 0(Normal) 3. Visual Field Loss - 0(No visual loss) 4. Facial Palsy - 1(Minor Paralysis) 5a. Left Arm: Motor (10-second hold) - 0(No drift) 5b. Right Arm: Motor (10-second hold) - 0(No drift) 6a. Left Leg: Motor (5-second hold - always test supine) - 0(No drift) 6b. Right Leg: Motor (5-second hold - always test supine) - 0(No drift) 7. Limb Ataxia (finger/nose \\T\\ heel/mansfield - test with eyes open) - 0(Absent) 8. Sensory Loss (pinprick arms/legs/face) - 0(Normal) 9. Best Language: Aphasia (description/naming/reading) - 2(Severe aphasia) 10. Dysarthria (speech clarity - read or repeat words) - 1(Mild to Moderate) 11. Extinction and Inattention (visual/tactile/auditory/spatial/personal) - 0(No abnormality) Initials: rn Signatures: Dispatcher [employer] EDMS Stu Edgar MD MD rn Leal, Jahala RN RN jl7 Cece Harrell RN RN jh6 Katerin Ellis RN RN ke1 Cece Harrell RN jh6 Corrections: (The following items were deleted from the chart) 19:35 16:00 Initial lab(s) drawn, by ED staff, sent to lab. EKG done, by ED staff, josefina reviewed by Stu Edgar MD COVRACHEL swab sent to lab. josefina
[2022-02-22] MEDS ORDERED: MAGNESIUM HYDROXIDE 8% 30 ML PO PRN (20:59)
[2022-02-22] MEDS ORDERED: ACETAMINOPHEN 500 MG TAB PO PRN (20:59)
[2022-02-22] MEDS ORDERED: ONDANSETRON 4 MG/2 ML VIAL IV PRN (20:59)
[2022-02-22] MEDS: INSULIN -REGULAR HUMAN 50 UNIT/0.5 ML ML SQ SCH (21:00)
--- NOTE | 2022-02-22 22:49 | P.HP ---
Certification for Inpatient Patient admitted to: Inpatient With expected LOS: <2 Midnights Patient will require the following post-hospital care: None Practitioner: I am a practitioner with admitting privileges, knowledge of patient current condition, hospital course, and medical plan of care. Services: Services provided to patient in accordance with Admission requirements found in Title 42 Section 412.3 of the Code of Federal Regulations Patient History Date of Service: 02/23/22 Reason for admission: Acute CVA History of Present Illness: Patient is an 81-year-old male with hypertension, IDDM, ESRD (dialysis MWF), and hypothyroidism who presented to the ED with complaints of aphasia and elevated blood pressure. Patient's reports that his symptoms began after he finished dialysis. She states that for about 15-20 minutes he was having difficulty speaking clearly. They deny any other neurologic deficits. Upon arrival, initial stroke scale 6. Patient was hypertensive with BP of 218/88. Head CT showed "No CT evidence of acute intracranial process. Moderate severity atrophy and moderate severity chronic ischemic changes are present. The chronic ischemic change can mask nonhemorrhagic CVA." Neurology was consulted and recommended TNKase. He was also given labetalol for high blood pressure. Labs WNL. Patient incidentally COVID positive. Upon my assessment, patient reports that his symptoms have resolved. Neurologic assessment within normal limits. He is admitted to the ICU for further evaluation and treatment. Allergies No Known Allergies Allergy (Verified 01/27/19 16:21) Home medications list reviewed: Yes Home Medications: Aspirin 81 mg PO DAILY 01/27/19 Atorvastatin Calcium [Lipitor] 40 mg PO BEDTIME 01/27/19 Cholecalciferol (Vitamin D3) [Vitamin D3] 5,000 unit PO DAILY 01/27/19 Cyanocobalamin (Vitamin B-12) [Vitamin B12] 1,000 mcg PO DAILY 01/27/19 Folic Acid 1 mg PO DAILY 01/27/19 Glimepiride 4 mg PO DAILY 01/27/19 Insulin Glargine,Hum.rec.anlog [Lantus Solostar] 18 units SQ DAILY 01/27/19 Levothyroxine Sodium 100 mcg PO DAILY 01/27/19 PHENYTOIN ER Cap [Dilantin ER Cap*] 200 mg PO BEDTIME 01/27/19 Zolpidem Tartrate [Ambien*] 5 mg PO BEDTIME 01/27/19 allopurinoL [Zyloprim*] 100 mg PO M,W,F 01/27/19 Clopidogrel Bisulfate [Plavix] 75 mg PO DAILY 02/22/22 Isosorbide Mononitrate [Isosorbide Mononitrate ER] 30 mg PO DAILY 02/22/22 Losartan Potassium 50 mg PO BEDTIME 02/22/22 Metoclopramide HCl [Reglan] 5 mg PO BID 02/22/22 carvediloL [Carvedilol] 12.5 mg PO BEDTIME 02/22/22 - Past Medical/Surgical History Has patient received pneumonia vaccine in the past: Yes Diabetic: Yes -: HTN -: Type 2 Diabetes, Insulin Dependent -: Hypothyroidism -: Arthritis -: ESRD with dialysis mwf -: carotid artery surgery Psychosocial/ Personal History: Patient is . - Family History Mother -: Diabetes - Social History Smoking Status: Never smoker Alcohol use: No CD- Drugs: No Caffeine use: Yes Place of Residence: Home Review of Systems Neurological: Change in Speech Physical Examination - Vital Signs Temperature: 97.9 F Blood Pressure: 141/102 Pulse: 73 Respirations: 13 Pulse Ox (%): 66 - Physical Exam General: Alert, In no apparent distress HEENT: Atraumatic, PERRLA, EOMI, Sclerae nonicteric Neck: Supple, 2+ carotid pulse no bruit, No LAD, Without JVD or thyroid abnormality Respiratory: Clear to auscultation bilaterally, Normal air movement Cardiovascular: Regular rate/rhythm, Normal S1 S2 Gastrointestinal: Normal bowel sounds, No tenderness Musculoskeletal: No tenderness Integumentary: No rashes Neurological: Normal gait, Normal speech, Normal strength at 5/5 x4 extr, Normal tone, Sensation intact, Normal affect - Studies Laboratory Data (last 24 hrs) 02/22/22 16:11: PT 10.9, INR 0.99, APTT 24.0 L 02/22/22 16:11: WBC 10.6, Hgb 12.1 L, Hct 36.4 L, Plt Count 226 02/22/22 16:11: Sodium 133 L, Potassium 3.5, BUN 22 H, Creatinine 3.77 H, Glucose 146 H Assessment and Plan - Problems (Diagnosis) (1) Cerebral infarct Current Visit: Yes Status: Acute Qualifiers: Cerebral infarction mechanism: unspecified mechanism Qualified Code(s): I63.9 - Cerebral infarction, unspecified (2) ESRD (end stage renal disease) on dialysis Current Visit: Yes Status: Chronic (3) Type 2 diabetes mellitus Current Visit: Yes Status: Chronic Qualifiers: Diabetes mellitus fdc insulin use: with terminal computer operator use Diabetes mellitus complication status: with hyperglycemia Qualified Code(s): E11.65 - Type 2 diabetes mellitus with hyperglycemia; Z79.4 - longterm (current) use of insulin (4) Hypertension Current Visit: Yes Status: Chronic Qualifiers: Hypertension type: primary hypertension Qualified Code(s): I10 - Essential (primary) hypertension (5) COVID-19 Current Visit: Yes Status: Acute - Plan -CVA orders in place -Neurology consulted -Plavix and folic acid daily -Lipid panel pending -Patient passed bedside swallow screen. Diabetic diet ordered -Physical therapy and speech therapy consulted -ACHS accu checks with mild sliding scale insulin. A1C ordered -MRI stroke protocol ordered for morning -Patient is also COVID positive. Isolation precautions in place. Vitamin C and zinc daily. -Reconcile and continue home medications -SCDs for VTE ppx (patient received TNK in ED) -Full code Discharge Plan: Home Plan to discharge in: 48 Hours - Advance Directives Does patient have a Living Will: Yes Does patient have a Durable POA for Healthcare: Yes - Code Status/Comfort Care Code Status Assessed: Yes (Full) Critical Care: No Time Spent Managing Pts Care (In Minutes): 50
[2022-02-23] MEDS ORDERED: HEPARIN 5000 UNIT/ML 1 ML VIAL SQ SCH (01:00)
[2022-02-23 02:17] VITALS: BMI 25.7
[2022-02-23 05:04] LABS: Absolute Lymphocytes (CBC) 1.7 K/uL (0.7-4.9); Hematocrit 32.1 % (39.6-49.0); Lymphocytes % 23.4 % (15.3-44.8); MCV 92.7 fL (80-100); MPV 8.5 fL (7.6-11.3); RBC Red Blood Cell Count 3.46 M/uL (4.33-5.43)
[2022-02-23 05:05] LABS: Protime INR 1.09
[2022-02-23 05:23] LABS: Blood Morphology Comment NOT SEEN (NOT SEEN); Platelet Estimate ADEQ
[2022-02-23 05:28] LABS: Albumin 3.1 g/dL (3.4-5.0); Bilirubin Total 0.3 mg/dL (0.2-1.0); Magnesium 1.7 mg/dL (1.8-2.4); Phosphorus 4.4 mg/dL (2.5-4.9); Potassium 3.5 mmol/L (3.5-5.1); Protein, Total 6.7 g/dL (6.4-8.2); Thyroid Stimulating Hormone 1.12 uIU/mL (0.360-3.740)
[2022-02-23] MEDS: INSULIN -REGULAR HUMAN 50 UNIT/0.5 ML ML SQ SCH ×4 (07:30→22:04)
--- NOTE | 2022-02-23 08:11 | P.CNS ---
Date of Consult: 02/23/22 Reason for Consult: ESRD Requesting Physician: Rip Fields Chief Complaint: Acute CVA History of Present Illness: Patient is an 81-year-old male with hypertension, IDDM, ESRD (dialysis MWF), and hypothyroidism who presented to the ED with complaints of aphasia and elevated blood pressure. Patient's reports that his symptoms began after he finished dialysis. She states that for about 15-20 minutes he was having difficulty speaking clearly. They deny any other neurologic deficits. Upon arrival, initial stroke scale 6. Patient was hypertensive with BP of 218/88. Head CT showed "No CT evidence of acute intracranial process. Moderate severity atrophy and moderate severity chronic ischemic changes are present. The chronic ischemic change can mask nonhemorrhagic CVA." Neurology was consulted and recommended TNKase. He was also given labetalol for high blood pressure. Labs WNL. Patient incidentally COVID positive. Upon my assessment, patient reports that his symptoms have resolved. Neurologic assessment within normal limits. He is admitted to the ICU for further evaluation and treatment. 16:52 This 81 yrs old Male presents to ER via EMS with complaints of difficulty with speech. rn 16:56 The patient presents to the emergency department with a speech or higher order brain rn function problem, dysarthria. Onset: The symptoms/episode began/occurred just prior to arrival. Associated signs and symptoms: Pertinent negatives: altered mental status, fever, headache, neck stiffness, paresthesias, seizure, syncope, near- syncope, blurred vision, double vision, visual field changes, loss of vision, weakness. Severity of symptoms: At their worst the symptoms were moderate in the emergency department the symptoms have resolved. Current symptoms: Currently, the patient is not experiencing any symptoms. The patient has experienced a previous episode. The patient has not recently seen a physician. Pt reports difficulty speaking clearly, happened for about 15-20 min, now resolved. Similar episode 1 week ago that also resolved on its own. No head injury or trauma. No bleeding. . Allergies No Known Allergies Allergy (Verified 01/27/19 16:21) Home medications list reviewed: Yes Home Medications: Aspirin 81 mg PO DAILY 01/27/19 Atorvastatin Calcium [Lipitor] 40 mg PO BEDTIME 01/27/19 Cholecalciferol (Vitamin D3) [Vitamin D3] 5,000 unit PO DAILY 01/27/19 Cyanocobalamin (Vitamin B-12) [Vitamin B12] 1,000 mcg PO DAILY 01/27/19 Folic Acid 1 mg PO DAILY 01/27/19 Glimepiride 4 mg PO DAILY 01/27/19 Insulin Glargine,Hum.rec.anlog [Lantus Solostar] 18 units SQ DAILY 01/27/19 Levothyroxine Sodium 100 mcg PO DAILY 01/27/19 PHENYTOIN ER Cap [Dilantin ER Cap*] 200 mg PO BEDTIME 01/27/19 Zolpidem Tartrate [Ambien*] 5 mg PO BEDTIME 01/27/19 allopurinoL [Zyloprim*] 100 mg PO M,W,F 01/27/19 Clopidogrel Bisulfate [Plavix] 75 mg PO DAILY 02/22/22 Isosorbide Mononitrate [Isosorbide Mononitrate ER] 30 mg PO DAILY 02/22/22 Losartan Potassium 50 mg PO BEDTIME 02/22/22 Metoclopramide HCl [Reglan] 5 mg PO BID 02/22/22 carvediloL [Carvedilol] 12.5 mg PO BEDTIME 02/22/22 - Past Medical/Surgical History Diabetic: Yes -: HTN -: Type 2 Diabetes, Insulin Dependent -: Hypothyroidism -: Arthritis -: ESRD with dialysis mwf -: carotid artery surgery Psychosocial/ Personal History: Patient is . - Family History Mother Medical History: Diabetes - Social History Alcohol use: No CD- Drugs: No Caffeine use: Yes Place of Residence: Home Review of Systems 10-point ROS is otherwise unremarkable Neurological: Weakness Physical Examination Temp Pulse Resp BP Pulse Ox 97.9 F 68 17 141/49 H 98 02/23/22 04:00 02/23/22 06:00 02/23/22 06:00 02/23/22 06:00 02/23/22 06:00 General: Oriented x3, Cooperative HEENT: Atraumatic Neck: Supple Respiratory: Clear to auscultation bilaterally Cardiovascular: No edema, Regular rate/rhythm Gastrointestinal: Soft and benign, Non-distended Musculoskeletal: No clubbing, No contractures Integumentary: No rashes, No cyanosis Neurological: Normal speech Laboratory Data (last 24 hrs) 02/22/22 16:11: PT 10.9, INR 0.99, APTT 24.0 L 02/22/22 16:11: WBC 10.6, Hgb 12.1 L, Hct 36.4 L, Plt Count 226 02/22/22 16:11: Sodium 133 L, Potassium 3.5, BUN 22 H, Creatinine 3.77 H, Glucose 146 H Imagings Data: EXAM DESCRIPTION: RAD - Chest Single View - 02/22/2022 5:10 pm CLINICAL HISTORY: possible CVA COMPARISON: Two view chest January 2019 TECHNIQUE: AP portable chest image was obtained 02/22/2022 5:10 pm . FINDINGS: Lung volumes are low. Right hemidiaphragm elevation is again noted with bowel interposition between the liver and right hemidiaphragm. No acute lung parenchymal process seen. No failure or volume overload finding seen. Heart and vasculature are normal. No measurable pleural effusion and no pneumothorax. No acute bony abnormality seen. No acute aortic findings suspected. IMPRESSION: No acute cardiopulmonary process. EXAM DESCRIPTION: CT - Ct Stroke Brain Wo Cont - 02/22/2022 4:24 pm CLINICAL HISTORY: Neuro deficit, acute, stroke suspected COMPARISON: No comparisons TECHNIQUE: Axial 5 millimeter thick images of the head were obtained without IV contrast. All CT scans are performed using dose optimization technique as appropriate and may include automated exposure control or mA/KV adjustment according to patient size. FINDINGS: No intracranial hemorrhage, mass, or cerebral edema. No acute cortical level infarction identifiable. No cortical edema or sulcal effacement. Moderate severity atrophy and moderate severity chronic ischemic changes are present. Ventricles are in proportion to the volume loss. Ortiz matter-white matter differentiation is preserved. Physiologic calcifications are present. Patient has very dense calcifications of the arterial tree. No globe or orbital content abnormality. Visualized portions of the mastoid air cells, paranasal sinuses, and orbits are unremarkable. Findings telephoned to Dr. Edgar 4:29 p.m.. IMPRESSION: No CT evidence of acute intracranial process. Moderate severity atrophy and moderate severity chronic ischemic changes are present. The chronic ischemic change can mask nonhemorrhagic CVA. Conclusions/Impression: ESRD -HD TIW Hyponatremia -HD TIW Hypomagnesemia -Replete prn HTN with CKD/ CHF -Hydralazine prn Diastolic CHF, chronic -Low sodium diet -HD with UF DM II with CKD -RISS Anemia in CKD -Retacrit prn CKD MBD -Start Vitamin D Thank you kindly for the referral.
[2022-02-23] MEDS ORDERED: LORazepam 2 MG/ML VIAL IV PRN (08:15)
--- NOTE | 2022-02-23 08:22 | EKG ---
Test Date: 2022-02-22 Test Time: 15:45:41 Is Analyst: VIDHYA MEASUREMENT RESULTS: Intervals: Rate: 86 NM: 192 QRSD: 146 QT: 434 QTc: 519 Reubens: P: 81 NM: 192 QRS: -27 T: 96 INTERPRETIVE STATEMENTS: Sinus rhythm with occasional premature ventricular complexes Left bundle branch block Abnormal ECG Compared to ECG 01/27/2019 09:35:20 Ventricular premature complex(es) now present Left-axis deviation no longer present Electronically Signed On 02-23-22 08:18:26 CDT by Julio Dickerson
[2022-02-23] MEDS ORDERED: clonazePAM 0.5 MG TAB PO SCH (09:00)
[2022-02-23] MEDS: FOLIC ACID 1 MG TABLET PO SCH (09:48)
[2022-02-23] MEDS: clonazePAM 0.5 MG TAB PO SCH (09:49)
[2022-02-23] MEDS: CITALOPRAM 10 MG TABLET PO SCH (09:49)
[2022-02-23] MEDS: CLOPIDOGREL 75 MG TABLET PO SCH (09:50)
--- NOTE | 2022-02-23 11:59 | RAD REPORT ---
EXAM DESCRIPTION: MRI - Brain Wo Cont - 02/23/2022 11:50 am CLINICAL HISTORY: CVA COMPARISON: Head CT February 22, 2022 TECHNIQUE: Axial, sagittal, and coronal magnetic resonance images of the brain were obtained. FINDINGS: Mild to moderate signal within periventricular, deep and subcortical white matter probably ischemic changes secondary to small vessel disease Diffusion-weighted/ADC mapping does not reveal evidence of acute infarction. The ventricles are normal caliber. An extra-axial fluid collection is not noted. Fluid within the sinuses/mastoids is not seen IMPRESSION: No acute intracranial abnormality noted
--- NOTE | 2022-02-23 12:01 | RAD REPORT ---
EXAM DESCRIPTION: MRI - MRA Head Wo Cont - 02/23/2022 11:50 am CLINICAL HISTORY: CVA COMPARISON: None. TECHNIQUE: Magnetic resonance angiogram was performed. 3D MIPS reconstruction performed FINDINGS: Some images are degraded by patient motion artifact. Hypoplastic A1 segment right anterior cerebral artery. The anterior cerebral, middle cerebral, posterior cerebral, distal internal carotid and basilar arter ies do not demonstrate a significant stenosis. An aneurysm is not displayed. IMPRESSION: No significant abnormality is displayed
--- NOTE | 2022-02-23 17:24 | P.DS ---
Admission Date: 02/22/22 Discharge Date: 02/24/22 Disposition: ROUTINE DISCHARGE Discharge Condition: FAIR Reason for Admission: Acute CVA Consultations: Nephrology, Neurology. - Problems (1) COVID-19 Status: Acute (2) TIA (transient ischemic attack) Status: Acute (3) ESRD (end stage renal disease) on dialysis Status: Chronic (4) Hypertension Status: Chronic Qualifiers: Hypertension type: primary hypertension Qualified Code(s): I10 - Essential (primary) hypertension (5) Type 2 diabetes mellitus Status: Chronic Qualifiers: Diabetes mellitus shelter insulin use: with remote computer terminal operator use Diabetes mellitus complication status: with hyperglycemia Qualified Code(s): E11.65 - Type 2 diabetes mellitus with hyperglycemia; Z79.4 - continuous churn buttermaker (current) use of insulin (6) Carotid artery disease Status: Acute Brief History of Present Illness: Patient is an 81-year-old male with hypertension, IDDM, ESRD (dialysis MWF), and hypothyroidism who presented to the ED with complaints of aphasia and elevated blood pressure. Patient's reports that his symptoms began after he finished dialysis. She states that for about 15-20 minutes he was having difficulty speaking clearly. They deny any other neurologic deficits. Upon arrival, initial stroke scale 6. Patient was hypertensive with BP of 218/88. Head CT showed "No CT evidence of acute intracranial process. Moderate severity atrophy and moderate severity chronic ischemic changes are present. The chronic ischemic change can mask nonhemorrhagic CVA." Neurology was consulted and recommended TNKase. He was also given labetalol for high blood pressure. Labs WNL. Patient incidentally COVID positive. His symptoms resolved in the ED. Neurologic assessment at the time he was seen for admission was within normal limits. He was admitted to the ICU for further evaluation and treatment. Hospital Course: Patient remained asymptomatic during the hospital stay. MRI of the brain did not show any acute CVA. MRA of the brain did not show any significant large vessel occlusion or aneurysm. Carotid Doppler done and and reported bilateral internal carotid artery stenosis, greater than 70% on the left. He reports prior history of right internal carotid occlusion and had an intervention done several years ago. Patient had no neurologic focal signs or symptoms during the hospital stay. His triglyceride is mildly elevated but LDL is within goal. He is on statin which was continued during the hospital stay. Needed to hold aspirin and Plavix for 24 hours after TNK. Patient seen by PT and noted to be independent. He also had no trouble swallowing. No DVT prophylaxis because patient was given TNKase and needed to hold anticoagulation for 24 hours. Patient informed to resume his aspirin and Plavix. Case discussed with neurology-Dr. Calderón and he is deemed clinically stable for discharge. He will follow with Dr. Calderón as an outpatient for arrangement for carotid artery intervention with vascular surgery as an outpatient. Vital Signs/Physical Exam: Temp Pulse Resp BP Pulse Ox 98.3 F 70 17 160/52 H 99 02/23/22 08:00 02/23/22 15:00 02/23/22 15:00 02/23/22 15:00 02/23/22 15:00 General: Alert, In no apparent distress, Oriented x3 HEENT: Mucous membr. moist/pink Neck: JVD not distended Respiratory: Clear to auscultation bilaterally, Normal air movement Cardiovascular: No edema, Regular rate/rhythm, Normal S1 S2 Gastrointestinal: Normal bowel sounds, Soft and benign, Non-distended, No tenderness Musculoskeletal: No swelling Integumentary: No rashes, No erythema Neurological: Normal speech, Normal strength at 5/5 x4 extr, Cranial nerves 3-12 intact Lymphatics: No axilla or inguinal lymphadenopathy Laboratory Data at Discharge: WBC 7.3 K/uL (4.3-10.9) D 02/23/22 04:50 Hgb 10.9 g/dL (13.6-17.9) L 02/23/22 04:50 Hct 32.1 % (39.6-49.0) L 02/23/22 04:50 Plt Count 186 K/uL (152-406) 02/23/22 04:50 PT 12.0 SECONDS (9.5-12.5) 02/23/22 04:50 INR 1.09 02/23/22 04:50 APTT 27.0 SECONDS (24.3-36.9) 02/23/22 04:50 Sodium 132 mmol/L (136-145) L 02/23/22 04:50 Potassium 3.5 mmol/L (3.5-5.1) 02/23/22 04:50 BUN 28 mg/dL (7-18) H 02/23/22 04:50 Creatinine 4.76 mg/dL (0.55-1.3) H 02/23/22 04:50 Glucose 199 mg/dL (74-106) H 02/23/22 04:50 Phosphorus 4.4 mg/dL (2.5-4.9) 02/23/22 04:50 Magnesium 1.7 mg/dL (1.8-2.4) L 02/23/22 04:50 Total Bilirubin 0.3 mg/dL (0.2-1.0) 02/23/22 04:50 AST 21 U/L (15-37) 02/23/22 04:50 ALT 25 U/L (12-78) 02/23/22 04:50 Alkaline Phosphatase 104 U/L (45-117) 02/23/22 04:50 Triglycerides 176 mg/dL (<150) H 02/23/22 04:50 Cholesterol 129 mg/dL (<200) 02/23/22 04:50 HDL Cholesterol 46 mg/dL (40-60) 02/23/22 04:50 Cholesterol/HDL Ratio 2.80 02/23/22 04:50 Home Medications: Aspirin 81 mg PO DAILY 01/27/19 Atorvastatin Calcium [Lipitor] 40 mg PO BEDTIME 01/27/19 Cholecalciferol (Vitamin D3) [Vitamin D3] 5,000 unit PO DAILY 01/27/19 Cyanocobalamin (Vitamin B-12) [Vitamin B12] 1,000 mcg PO DAILY 01/27/19 Folic Acid 1 mg PO DAILY 01/27/19 Glimepiride 4 mg PO DAILY 01/27/19 Insulin Glargine,Hum.rec.anlog [Lantus Solostar] 18 units SQ DAILY 01/27/19 Levothyroxine Sodium 100 mcg PO DAILY 01/27/19 PHENYTOIN ER Cap [Dilantin ER Cap*] 200 mg PO BEDTIME 01/27/19 Zolpidem Tartrate [Ambien*] 5 mg PO BEDTIME 01/27/19 allopurinoL [Zyloprim*] 100 mg PO M,W,F 01/27/19 Clopidogrel Bisulfate [Plavix] 75 mg PO DAILY 02/22/22 Isosorbide Mononitrate [Isosorbide Mononitrate ER] 30 mg PO DAILY 02/22/22 Losartan Potassium 50 mg PO BEDTIME 02/22/22 Metoclopramide HCl [Reglan] 5 mg PO BID 02/22/22 carvediloL [Carvedilol] 12.5 mg PO BEDTIME 02/22/22 Calcitrol [Rocaltrol*] 0.5 mcg PO DAILY #60 cap 02/23/22 Citalopram [Celexa*] 10 mg PO DAILY tablet 02/23/22 Vit B Comp No.3/Folic/C/Biotin [Nephro-Sumi Rx Tablet] 1 each PO DAILY #30 tablet 02/23/22 clonazePAM [Klonopin*] 0.25 mg PO DAILY tab 02/23/22 New Medications: Vit B Comp No.3/Folic/C/Biotin [Nephro-Sumi Rx Tablet] 1 each PO DAILY #30 tablet Calcitrol [Rocaltrol*] 0.5 mcg PO DAILY #60 cap Diet: Renal Activity: Ad alexandria Followup: Micha Calderón MD [ASSOCIATE-ACTIVE - CAN ADMIT] - 1-2 Weeks (call for an apoointment) Shree Alvarado MD [Primary Care Provider] - 1-2 Weeks (call for an apointment ) Time spent managing pt's care (in minutes): 38
--- NOTE | 2022-02-23 17:31 | RAD REPORT ---
EXAM DESCRIPTION: US - CP - 02/23/2022 5:17 pm CLINICAL HISTORY: TIA Headache, drowsiness COMPARISON: Ct Stroke Brain Wo Cont dated 02/22/2022 TECHNIQUE: Real-time sonographic evaluation of both carotid systems was performed. Doppler interroga tion was performed with waveform tracing bilaterally. FINDINGS: Normal high resistance waveforms are noted in both external carotid arteries. The common c arotid arteries and internal carotid arteries show normal low resistance waveforms. There is moderate hard plaque noted involving the right carotid bulb. There is severe hard plaque pre sent left carotid bulb resulting in stenosis estimated at 70% based on NASCET criteria. Peak systolic and end diastolic velocity values and the ICA/CCA ratios are in the non-hemodynamically significant range. Antegrade flow seen in both vertebral arteries. IMPRESSION: There is significant hard plaquing in both carotid bulb/proximal internal carotid arteri es. Hard plaquing is severe on the left in these locations. Stenosis is suspected involving the proximal left internal carotid artery estimated at 70% or greater . CTA or MRA of the neck vessels would be useful for more detailed assessment.
[2022-02-23] MEDS: HYDRALAZINE HCL 20 MG/ML VIAL IV PRN (18:09)
--- NOTE | 2022-02-23 19:16 | P.PN ---
Subjective Date of Service: 02/23/22 Chief Complaint: Acute CVA Patient denies any complaint and request to go home. He denies any limb weakness, he has no problem with speech. Blood pressure is elevated. Physical Examination - Vital Signs Temperature: 97.4 F Blood Pressure: 184/88 Pulse: 67 Respirations: 18 Pulse Ox (%): 67 - Physical Exam General: Alert, In no apparent distress, Oriented x3 HEENT: Mucous membr. moist/pink Neck: JVD not distended Respiratory: Clear to auscultation bilaterally, Normal air movement Cardiovascular: No edema, Normal S1 S2, Irregular heart rate/rhythm Gastrointestinal: Normal bowel sounds, Soft and benign, Non-distended, No tenderness Musculoskeletal: No swelling Integumentary: No rashes Neurological: Normal speech, Normal strength at 5/5 x4 extr Assessment And Plan - Current Problems (Diagnosis) (1) TIA (transient ischemic attack) Current Visit: Yes Status: Acute (2) Carotid artery disease Current Visit: Yes Status: Acute (3) COVID-19 Current Visit: Yes Status: Acute (4) ESRD (end stage renal disease) on dialysis Current Visit: Yes Status: Chronic (5) Type 2 diabetes mellitus Current Visit: Yes Status: Chronic Qualifiers: Diabetes mellitus group home insulin use: with exterminator use Diabetes mellitus complication status: with hyperglycemia Qualified Code(s): E11.65 - Type 2 diabetes mellitus with hyperglycemia; Z79.4 - halfway (current) use of insulin - Plan MRI of the brain showed no acute CVA. MRA of the brain shows no significant large vessel occlusion. Carotid Doppler demonstrated bilateral carotid artery disease with 70% stenosis on the left. Patient given TNKase yesterday. No aspirin or Plavix for 24 hours after TNKase. Resume aspirin and Plavix tomorrow No DVT prophylaxis within 24 hours of TNKase. Start DVT prophylaxis tomorrow. Patient appears asymptomatic from the COVID-19 infection. Seen by nephrology for routine hemodialysis. He is scheduled for hemodialysis tomorrow. Blood pressure is elevated. Continue home antihypertensives. Hydralazine as needed for BP spikes.
[2022-02-23] MEDS ORDERED: ALBUMIN HUMAN 25% 50 ML IV SCH (20:49)
[2022-02-23] MEDS ORDERED: NA CHLORIDE 0.9% 1,000 ML IV PRN (20:49)
[2022-02-23] MEDS ORDERED: MANNITOL 25% 12.5 GM/50 ML VIAL IV PRN (20:49)
[2022-02-23 20:57] VITALS: O2SAT 97
[2022-02-23] MEDS ORDERED: LOSARTAN POTASSIUM 50 MG TABLET PO SCH (21:00)
[2022-02-23] MEDS ORDERED: PHENYTOIN ER 100 MG CAP PO SCH (21:00)
[2022-02-23] MEDS ORDERED: TRAZODONE 50 MG TABLET PO SCH (21:00)
[2022-02-23] MEDS ORDERED: carvediloL 12.5 MG TAB PO SCH (21:00)
[2022-02-24] MEDS: HYDRALAZINE HCL 20 MG/ML VIAL IV PRN (00:36)
[2022-02-24 03:49] LABS: Absolute Lymphocytes (CBC) 1.9 K/uL (0.7-4.9); Hematocrit 34.5 % (39.6-49.0); MCV 93.5 fL (80-100); MPV 8.6 fL (7.6-11.3)
[2022-02-24 03:53] LABS: Protime INR 1.03
[2022-02-24 04:18] LABS: Albumin 3.1 g/dL (3.4-5.0); Bilirubin Total 0.3 mg/dL (0.2-1.0); Protein, Total 6.9 g/dL (6.4-8.2)
[2022-02-24 05:13] VITALS: TEMP 97
[2022-02-24] MEDS: INSULIN -REGULAR HUMAN 50 UNIT/0.5 ML ML SQ SCH (07:30)
[2022-02-24 07:55] VITALS: BP 152/72
--- NOTE | 2022-02-24 08:06 | ECHO ---
HEIGHT: 6 ft 2 in WEIGHT: 200 lb 0 oz DATE OF STUDY: 02/23/[address]: Tami Pemberton 2-DIMENSIONAL: YES M.MODE: YES DOPPLER: YES COLOR FLOW: YES TDS: NO PORTABLE: YES DEFINITY: NO BUBBLE STUDY: NO DIAGNOSIS: STROKE CARDIAC HISTORY: CATHERIZATION: SURGERY: PROSTHETIC VALVE: PACEMAKER: MEASUREMENTS (cm) DIASTOLIC (NORMALS) SYSTOLIC (NORMALS) IVSd 1.1 (0.6-1.2) LA Diam 3.1 (1.9-4.0) LVEF 64% LVIDd 4.3 (3.5-5.7) LVIDs 2.8 (2.0-3.5) %FS 34% LVPWd 1.2 (0.6-1.2) Ao Diam 3.2 (2.0-3.7) 2 DIMENSIONAL ASSESSMENT: RIGHT ATRIUM: NORMAL LEFT ATRIUM: NORMAL RIGHT VENTRICLE: NORMAL LEFT VENTRICLE: NORMAL TRICUSPID VALVE: NORMAL MITRAL VALVE: MITRAL ANNULAR CALCIFICATION PULMONIC VALVE: NORMAL AORTIC VALVE: SCLEROSIS PERICARDIAL EFFUSION: NONE AORTIC ROOT: NORMAL LEFT VENTRICULAR WALL MOTION: NORMAL DOPPLER/COLOR FLOW: NORMAL COMMENTS: AORTIC SCLEROSIS WITH NO STENOSIS. NORMAL LEFT VENTRICULAR SIZE AND FUNCTION. NO THROMBUS OR VEGETATION. TECHNOLOGIST: Reyes SHELBY
[2022-02-24] MEDS: CITALOPRAM 10 MG TABLET PO SCH (08:47)
[2022-02-24] MEDS: CLOPIDOGREL 75 MG TABLET PO SCH (08:47)
[2022-02-24] MEDS: FOLIC ACID 1 MG TABLET PO SCH (08:47)
[2022-02-24] MEDS: clonazePAM 0.5 MG TAB PO SCH (08:51)
[2022-02-24] MEDS ORDERED: CALCITROL 0.25 MCG CAP PO SCH (09:00)
[2022-02-24] MEDS ORDERED: LEVOTHYROXINE SOD 0.1 MG TAB PO SCH (09:00)
[2022-02-24] MEDS ORDERED: VITAMIN D 5,000 UNIT CAP PO SCH (09:00)
[2022-02-24] MEDS ORDERED: MULTIVITAMINS,THERAPEUT 1 TAB PO SCH (09:00)
--- OUTSIDE RECORDS SUMMARY | 2022-03-03 23:56 | XMS REPORT | Continuity of Care Document ---
:1940 Author Organization [facility] t Address [address] [place] [address] Care Team Providers Name Role Phone Ashok MAS Primary Care Physician Unavailable SATHYA BARNETT Attending Clinician Unavailable JC PITTS Admitting Clinician Unavailable Problems This patient has no known problems. Allergies, Adverse Reactions, Alerts Allergy Allergy Status Severity Reaction(s) Onset Inactive Treating Comm ents Source Name Type Date Date Clinician NO KNOWN Allergy Active [facility] Medications This patient has no known medications. Procedures This patient has no known procedures. Encounters Start End Encounter Admission Attending Care Care Encounter Source Date/Time Date/Time Type Type Clinicians Facility Department ID 2021-12-[address] [facility] [id number] Common 11:33:02 [facility] 2019-02-28 Inpatient E [facility] MED [id number] MHB L 23:43:00 2019-02-14 2019-02-12 Inpatient E [facility] MED 7500 [facility]BL 11:45:00 14:51:00 Results Test Description Test Time Test Comments Results Result Comments Source HEPATITIS B SURFACE ANTIBODY 2019-09-06 15:02:00 Test Item Value Reference Range Interpretation Comme nts HEPATITIS B SURFACE ANTIBODY (ABDI) (test code = 647) < mIU/mL <8.0 [employer] Work[employer] ID - BSPOCT-GLUCOSE [id number] 21:37:00 Test Item Value Reference Range Interpretation Comments POC-GLUCOSE METER 124 mg/dL 70-110 H : TESTED A T [facility] [address] (BEFELISA) (test code [address] [facility] [address], = [address]) [place] [address]: [employer] Worker/Techni florence ID = [id number] for Oyeb tracy, Shanelle HEPATITIS B SURFACE [id number] 20:46:00 Test Item Value Reference Range Interpretation Comments HEPATITIS B SURFACE ANTIGEN (2) Nonreactive Nonreactive ([facility]) (test code = 2585) [employer] Work[employer] ID - JBERNPOCT-GLUCOSE [id number] 16:44:00 Test Item Value Reference Range Interpretation Comments POC-GLUCOSE METER 139 mg/dL 70-110 H : Notified RN/MD: TESTED ([facility]) (test code AT [facility] [address] = [address]) [place] [address]: [employer] Worker/Techni florence ID = [id number] for Thak er, Nikitaben POCT-GLUCOSE [id number] 11:52:00 Test Item Value Reference Range Interpretation Comments POC-GLUCOSE METER 211 mg/dL 70-110 H : Notified RN/MD: TESTED ([facility]) (test code AT [facility] [address] = [address]38) [place] [address]: [employer] Worker/Techni florence ID = [id number] for Thak er, Nikitaben POCT-GLUCOSE [id number] 08:56:00 Test Item Value Reference Range Interpretation Comments POC-GLUCOSE METER 110 mg/dL 70-110 : [facility] (test code [facility], = 1538) [place] [address]: [employer] Worker/Techni florence ID = [id number] for Zuleyma u, Anne POCT-GLUCOSE [id number] 21:06:00 Test Item Value Reference Range Interpretation Comments POC-GLUCOSE METER 201 mg/dL 70-110 H : [facility] (BEAKER) (test code [address] [facility], = 1538) [place] [address]: [employer] Worker/Techni florence ID = [id number] for Oyeb tracy, Shanelle POCT-GLUCOSE [id number] 17:34:00 Test Item Value Reference Range Interpretation Comments POC-GLUCOSE METER 115 mg/dL 70-110 H : Notified RN/MD: TESTED ([facility]) (test code AT [facility] [address] = [address]) [place] [address]: [employer] Worker/Techni florence ID = [id number] for Lia Oconnell POCT-GLUCOSE [id number] 16:51:00 Test Item Value Reference Range Interpretation Comments POC-GLUCOSE METER 122 mg/dL 70-110 H : TESTED A T [facility] [address] (BEAKER) (test code [address], = 1538) [facility] [address]: [employer] Worker/Techni florence ID = [id number] for Nga Barraza BASIC METABOLIC [id number] 14:35:00 Test Item Value Reference Range Interpretation Comments SODIUM (BEAKER) 139 meq/L 135-148 (test code = 381) POTASSIUM (BEAKER) 4.8 meq/L 3.6-5.5 (test code = 379) CHLORIDE (BEAKER) 103 meq/L 98-106 (test code = 382) CO2 (BEAKER) (test 28 meq/L 20-29 code = 355) BLOOD UREA NITROGEN 31 mg/dL 10-26 H (BEAKER) (test code = 354) CREATININE (BEAKER) 3.99 mg/dL 0.50-1.20 H (test code = 358) GLUCOSE RANDOM 153 mg/dL 70-110 H (BEAKER) (test code = 652) CALCIUM (BEAKER) 9.0 mg/dL 8.5-10.5 (test code = 697) EGFR (BEAKER) (test 15 mL/min/1.73 ESTIMA CHAYO GFR IS code = 1092) sq m NOT ACCURATE CREATININE CLEARANCE IN PREDICTING GLOMERULAR FILTRATION RATE . ESTIMATED GFR I S NOT APPLICABLE FOR DIALYSIS PATIEN TS. [employer] Worker ID - [id number] METABOLIC [id number] 11:00:00 Test Item Value Reference Range Interpretation Comments SODIUM (BEAKER) 139 meq/L 135-148 (test code = 381) POTASSIUM (BEAKER) 4.5 meq/L 3.6-5.5 (test code = 379) CHLORIDE (BEAKER) 102 meq/L 98-106 (test code = 382) CO2 (BEAKER) (test 30 meq/L 20-29 H code = 355) BLOOD UREA NITROGEN 26 mg/dL 10-26 (BEAKER) (test code = 354) CREATININE (BEAKER) 3.82 mg/dL 0.50-1.20 H (test code = 358) GLUCOSE RANDOM 149 mg/dL 70-110 H (BEAKER) (test code = 652) CALCIUM (BEAKER) 8.9 mg/dL 8.5-10.5 (test code = 697) EGFR (BEAKER) (test 15 mL/min/1.73 ESTIMA CHAYO GFR IS code = 1092) sq m NOT ACCURATE CREATININE CLEARANCE IN PREDICTING GLOMERULAR FILTRATION RATE . ESTIMATED GFR I S NOT APPLICABLE FOR DIALYSIS PATIEN TS. [employer] Worker ID - [id number] 10:54:00 Test Item Value Reference Range Interpretation Comments PROTIME (BEAKER) (test code = 759) 10.9 sec 9.3-12.0 INR (BEAKER) (test code = 370) 1.0 <=5.9 PARTIAL THROMBOPLASTIN TIME (BEAKER) 25.4 sec 23.0-35.0 (test code = 760) RECOMMENDED COUMADIN/WARFARIN INR THERAPY RANGESSTANDARD DOSE: 2.0 - 3.0 Includes: PROPHYLAXIS forvenous thrombosis, systemic embolization; TREATMENT for venous thrombosis and/or pulmonary embolus.HIGH RISK: Target INR is 2.5-3.5 for patients with mechanical heart valves.Final Information (Auto Output)Final Information (Auto Output)Final Information (Auto Output)CBC W/PLT COUNT & AUTO [id number] 10:39:00 Test Item Value Reference Range Interpretation Comments WHITE BLOOD CELL COUNT (BEAKER) 7.2 K/ L 4.0-10.0 (test code = 775) RED BLOOD CELL COUNT (BEAKER) 3.61 M/ L 4.20-5.80 L (test code = 761) HEMOGLOBIN (BEAKER) (test code = 11.6 GM/DL 13.0-16.8 L 410) HEMATOCRIT (BEAKER) (test code = 36.1 % 36.0-50.0 411) MEAN CORPUSCULAR VOLUME (BEAKER) 100.0 fL 82.0-99.0 H (test code = 753) MEAN CORPUSCULAR HEMOGLOBIN 32.1 pg 27.0-33.0 (BEAKER) (test code = 751) MEAN CORPUSCULAR HEMOGLOBIN CONC 32.1 GM/DL 32.0-36.0 (BEAKER) (test code = 752) RED CELL DISTRIBUTION WIDTH 13.9 % 12.0-15.0 (BEAKER) (test code = 412) PLATELET COUNT (BEAKER) (test 198 K/CU MM 150-430 code = 756) MEAN PLATELET VOLUME (BEAKER) 9.3 fL 6.0-11.5 (test code = 754) NUCLEATED RED BLOOD CELLS 0 /100 WBC 0-0 (BEAKER) (test code = 413) NEUTROPHILS RELATIVE PERCENT 53 % (BEAKER) (test code = 429) LYMPHOCYTES RELATIVE PERCENT 31 % (BEAKER) (test code = 430) MONOCYTES RELATIVE PERCENT 11 % (BEAKER) (test code = 431) EOSINOPHILS RELATIVE PERCENT 4 % (BEAKER) (test code = 432) BASOPHILS RELATIVE PERCENT 1 % (BEAKER) (test code = 437) NEUTROPHILS ABSOLUTE COUNT 3.81 K/ L 1.80-8.00 (BEAKER) (test code = 670) LYMPHOCYTES ABSOLUTE COUNT 2.21 K/ L 1.48-4.50 (BEAKER) (test code = 414) MONOCYTES ABSOLUTE COUNT (BEAKER) 0.80 K/ L 0.00-1.30 (test code = 415) EOSINOPHILS ABSOLUTE COUNT 0.32 K/ L 0.00-0.50 (BEAKER) (test code = 416) BASOPHILS ABSOLUTE COUNT (BEAKER) 0.06 K/ L 0.00-0.20 (test code = 417) IMMATURE GRANULOCYTES-RELATIVE 0 % 0-0 PERCENT (BEAKER) (test code = 9374)
== END 2022-02-24 09:13 | disposition home or self-care (01) | DRG 61 ==
LOC: ER 15:35 → ERHOLD 19:04 → 3RD-ICU 20:14 → 4TH 02-23 16:00
PROVIDERS: ADMIT Internal Medicine Sleep Medicine; ATTEND Internal Medicine Sleep Medicine
DX: G45.9 Transient cerebral ischemic attack, unspecified (principal); U07.1 COVID-19; N18.6 End stage renal disease; I12.0 Hypertensive chronic kidney disease with stage 5 chronic kidney disease or end stage renal disease; R47.01 Aphasia; E87.1 Hypo-osmolality and hyponatremia; E11.22 Type 2 diabetes mellitus with diabetic chronic kidney disease; I65.23 Occlusion and stenosis of bilateral carotid arteries; E03.9 Hypothyroidism, unspecified; E83.42 Hypomagnesemia; D63.1 Anemia in chronic kidney disease; Z79.82 Long term (current) use of aspirin; Z79.4 Long term (current) use of insulin
CPT/HCPCS: 36415; 70450; 70544; 70551; 71045; 80048; 80053; 80061; 82565; 82947; 83036; 83735; 84100; 84443; 85025; 85610; 85730; 92977; 93005; 93306; 93880; 94760; 97161; 99291; J0360; J1815; J3101; U0003